=== PATIENT | male | born 1970 | race Caucasian/White ===

== ENCOUNTER → 2016-08-10 | Outpatient (CLI) | payer OTHER ==
[~2016-08-10] VITALS: Ht 181.6 cm; Wt 148.0 kg
[2016-08-10 13:56] VITALS: BP 149/96; PULSE 85; Ht 181.6 cm; Wt 148.0 kg
== END | disposition home or self-care (01) ==
LOC: C.NEUR 13:00
PROVIDERS: ATTEND Internal Medicine Pulmonary Disease
DX: G47.33 Obstructive sleep apnea (adult) (pediatric) (principal)

== ENCOUNTER → 2016-09-03 | Outpatient (CLI) | payer OTHER | END | disposition home or self-care (01) | LOC: C.PATHSPEC 14:26 | PROVIDERS: ATTEND Dermatology | DX: L91.8 Other hypertrophic disorders of the skin (principal) ==

== ENCOUNTER → 2016-11-07 | Outpatient (CLI) | payer OTHER ==
[2016-11-07 11:07] LABS: ALT/SGPT 50 U/L (12-78); AST/SGOT 17 U/L (15-37); BLOOD UREA NITROGEN 24 mg/dl (7-18); BUN/CREATININE RATIO 21.5 (10-20); CALCIUM 8.9 mg/dl (8.5-10.1); CARBON DIOXIDE 32 mmol/L (21-32); CHLORIDE 105 mmol/L (98-107); GLUCOSE 107 mg/dl (70-99); POTASSIUM 4.7 mmol/L (3.5-5.1); SODIUM 141 mmol/L (136-145)
[2016-11-07 11:10] LABS: ALB/GLOB RATIO 0.9 (0.9-2); ALKALINE PHOSPHATASE 82 U/L (45-117)
[2016-11-07 11:12] LABS: ESTIMATED AVERAGE GLUCOSE 128 mg/dl; HA1C FLAG Normal (Normal)
== END | disposition home or self-care (01) ==
LOC: C.LAB 09:37
PROVIDERS: ATTEND Internal Medicine
DX: Z00.00 Encounter for general adult medical examination without abnormal findings (principal); I10 Essential (primary) hypertension; R73.01 Impaired fasting glucose

== ENCOUNTER → 2017-03-06 | Outpatient (CLI) | payer OTHER ==
[2017-03-06 10:43] LABS: ESTIMATED AVERAGE GLUCOSE 128 mg/dl; HA1C FLAG Normal (Normal)
== END | disposition home or self-care (01) ==
LOC: C.LAB 08:58
PROVIDERS: ATTEND Internal Medicine
DX: R73.01 Impaired fasting glucose (principal)

== ENCOUNTER → 2017-09-17 | Outpatient (CLI) | payer OTHER ==
--- NOTE | 2017-09-18 06:16 | PAP/PSG TECHNICIAN REPORT ---
[facility] Panel Machine Setter Polysomnogram Report Study name: None Report date: 09/18/2017 Study date: 09/17/2017 Referring Physician: Vicki Spence PA-C, PA-C Name: SANIYA ANTONY Interpreting Physician: Edil Barboza D.O. Date of : 1970 Panel Machine Setter: Wolf Lester RPSGT. Sex: Male Age: 46 StudyType: PSG PAP Weight: 312 lbs 20.5 inches Height: 46 years, Height 5' 10" Neck Circum: BMI: 44.76 Medications: ASPIRIN 81 MG, HYDRCHLOROTHIAZIDE 12.5 MG, LOSARTAN POTASSIUM 100 MG, METFORMIN HCL 500 MG, VENTOLIN HFA 108 90 BASE Patient History PATIENT HAS HISTORY OF HYPERTENSION, MORBID OBESITY, AND VENU. HE HAS BEEN WEARING CPAP SINCE 2009. HE CURRENTLY WEARS 13 CWP. HE IS HERE TODAY FOR AN UPDATE ON HIS PRESSURE. RM 6 Parameters Monitored NPSG: E1-M2, E2-M1, Fp1-M2, Fp2-M1, F3-M2, F4-M2, F4-M1, C3-M2, C4-M2, C4-M1, O1-M2, O2-M2, O2-M1, T3-M2, T4-M1, P3-M2, P4-M1, CHIN1, CHIN2, HR, EKG, Legs, PFLOW, SNOR, FLOW, CFLOW, Tidal Volume, THOR, ABDO, SpO2, PLTH, CPRESS, ETCO2 Wave, ETCO2, pH Sleep Architecture Sleep Stages Time at Lights Off 9:48:15 PM STAGES Time (min.) TST (%) Time at Lights On 5:52:15 AM Wake 72.5 -- Total Recording Time (TRT) 484.50 min. N1 27.5 7 Total Sleep Period (TSP) 477.5 min. N2 250.5 61 Total Sleep Time (TST) 411.5min. N3 52.0 13 Awake Time 72.5 min. REM 81.5 20 Wake after Sleep Onset 66.0 min. Sleep Efficiency (SE) 85 % Sleep Onset Latency (CARLOS) 6.5 min. Number of Stage 1 Shifts None Awakenings 25 Stage Changes 89 Number of REM periods 10 REM 81.5 20 REM Latency 53.5 min. NREM 330.0 80 Body Position Analysis Supine Right Left Side Prone Vertical Total Sleep Time (min.) 423.6 9.0 45.3 54.32 0.0 0.0 Total Sleep Time (%) 87% 2% 11% 13 0% N/A% Total Sleep Time REM (min.) 77.0 0.0 4.5 None 0.0 0.0 Total Sleep Time NREM (min.) 280.2 9.0 40.8 None 0.0 0.0 Intermittent Wake (min.) 66.4 5.1 1.0 None 0.0 0.0 Total Sleep Period (%) 87% None None None None None Arousals Myoclonus (PLM) * Events Count Index Events Count Index Spontaneous 20 3 Events Awake (PLMW) 55 45.5 Respiratory 0 0.0 Events Asleep w/ Arousal (PLMA) 5 0.7 PLM 5 1 Events Asleep w/o Arousal (PLMS) 279 40.7 Snoring 1 0 Total Asleep 284 41.4 Total 26 4 Total 339 42 Respiratory Analysis * CA OA MA CH H RERA Total Count 0 0 0 0 6 0 6 Index 0.0 0.0 0.0 0 0.9 0 0.9 Mean Duration 0.0 0.0 0.0 0.00 17.0 0.0 17.0 Longest Duration 0.0 0.0 0.0 0.00 0.0 0.0 18.6 Respiratory Event Summary Total Supine ~Supine Right Left Prone REM NREM Apneas Count 0 0 0 0 0 N/A 0 0 Index 0.0 0 0 0.0 0.0 N/A 0 0 Hypopneas (4% Desat) Count 6 4 2 0 2 N/A 6 0 Index 0.9 0.7 2 0.0 2.6 N/A 4.4 0.0 Apneas & All Hypopneas Count 6 4 2 0 2 N/A 6 0 Index 0.9 1 2 0 3 N/A 4.4 0.0 Respiratory Events (Assurance Associate+All Hyp+RERA) Count 6 4 2 0 2 N/A 6 0 Index 0.9 1 2 0.0 2.6 N/A 4.4 0.0 Respiratory Related Arousal Count 0 4 0 0 0 N/A 0 0 Index 0.0 0 0 0 0 N/A 0 0 Snoring Analysis Supine Right Left Prone REM NREM Total Snore duration 0.4 min Snores count 7 2 3 N/A 0 12 12 Snore mean duration 2.0 Sec Snores index 1 13 4 N/A 0.0 2.2 1.7 TST with snoring (%) 0.1% Desaturation Event Summary: Minimum %SpO2 Event Count Mean/Min/Max Duration(sec.) Desaturation Index % Time In Bed > 90 7 42.7 / 30.3 / 53.5 0.9 100.0 86 - 90 0 N/A 0.0 0.0 81 - 85 0 N/A 0.0 0.0 76 - 80 0 N/A 0.0 0.0 71 - 75 0 N/A 0.0 0.0 66 - 70 0 N/A 0.0 0.0 61 - 65 0 N/A 0.0 0.0 56 - 60 0 N/A 0.0 0.0 51 - 55 0 N/A 0.0 0.0 < 50 0 N/A 0.0 0.0 Total REM NREM Awake <50% 0.0 min. 0.0 min. 0.0 min. 0.0 min. 51 - 60% 0.0 min. 0.0 min. 0.0 min. 0.0 min. 61 - 70% 0.0 min. 0.0 min. 0.0 min. 0.0 min. 71 - 80% 0.0 min. 0.0 min. 0.0 min. 0.0 min. 81 - 90% 0.2 min. 0.1 min. 0.0 min. 0.1 min. 91 - 100% 483.4 min. 81.4 min. 330.0 min. 72.0 min. Average 94 94 94 95 Minimum SpO2 90 90 91 90 Desaturation Event Index 0.9 4.4 0.0 0.8 # Desat. Events below 89% N/A N/A N/A N/A Time(%) with Saturation below 89% 0.0 0.0 0.0 0.0 Time(min.) with Saturation below 89% 0.0 0.0 0.0 0.0 Time (mins) REM (mins) NREM (mins) % of TST SpO2 Below 90% 1 1 NN/A 0.0 SpO2 Below 88% 0 0 0 0 Heart Rate Analysis Min (bpm) Max (bpm) Average (bpm) Awake 62 108 81 NREM 60 112 75 REM 60 99 76 Overall 60 112 75 Supplemental O2 Values Minimum O2 level: None Value Start Time End Time Panel Machine Setter Comments Mr. Antony slept in the right, left and supine positions. No cardiac arrhythmia noted. Leg movements noted. No bruxism noted. CPAP was initiated at +10 CMH2O and up-titrated to an optimal level of +12 CMH2O, which nearly eliminated all respiratory events and snoring. The patient brought in his own mask that was used during titration Mr. Antony awoke to use the restroom 0 times during the night. Mr. Antony stated I did not sleep as well as I do when I am in my own bed. The final report will be interpreted and signed by a sleep physician. The completed physician report will then be placed in the patient medical record. Therapy Event: Therapy (cm H20) 10 11 12 Total Time at Pressure (min.) 324.7 87.1 72.2 TST at Pressure (min.) 281.2 69.1 61.2 # Periods 1 1 1 Sleep Onset (min.) 6.5 0.0 0.0 REM Onset (min.) 60.0 0.0 13.7 Sleep Efficiency % 86 79 84 Wakefulness (%) 13.4 20.7 15.2 Wakefulness (min.) 43.5 18.0 11.0 NREM 1 (%) 4.8 6.1 9.3 NREM 1 (min.) 15.5 5.3 6.7 NREM 2 (%) 54.5 46.5 45.7 NREM 2 (min.) 177.0 40.5 33.0 NREM 3 (%) 15.2 2.9 0.0 NREM 3 (min.) 49.5 2.5 0.0 REM (%) 12.1 23.9 29.8 REM (min.) 39.2 20.8 21.5 # Arousals 22 2 2 Arousal Index 4.7 1.7 2.0 # Snore 6 4 2 Snore Index 1.3 3.5 2.0 AHI 0.4 3.5 0.0 AHI Supine 0.4 5.0 0.0 AHI Non-Supine 0.0 2.6 N/A NREM AHI 0.0 0.0 0.0 REM AHI 3.1 11.5 0.0 RDI 0.4 3.5 0.0 # Obstructive 0 0 0 # Central Ap 0 0 0 # Mixed 0 0 0 # Hypopneas 2 4 0 RERAS 0 0 0 Total Respiratory Events 2 4 0 Time Below SpO2 89.00% (min.) 0.0 0.0 0.0 Mean NREM SpO2 (%) 94 94 95 Mean REM SpO2 (%) 94 94 95 Mean Sleep SpO2 (%) 94 94 95 Min NREM SpO2 (%) 91 92 93 Min REM SpO2 (%) 91 90 91 Position Supine (min.) 272.2 23.8 61.2 Position Non-supine (min.) 9.0 45.3 0.0 LM Index Sleep 60.4 0.9 0.0 LM Index NREM 69.9 1.2 0.0 LM Index REM 1.5 0.0 0.0 Mean Heart Rate (bpm) 77 70 70 Min Heart Rate (bpm) 61 60 61
--- NOTE | 2017-09-22 07:52 | Sleep Study ---
Sleep Study Report Date of Service: 09/17/2017 Sleep Study Report CLINICAL DATA: The patient is a 46-year-old male with a history of sleep apnea. He has been wearing nasal CPAP since 2009. His current pressure is 13 centimeters. He has had some daytime tiredness. He is referred for a CPAP retitration. SLEEP ARCHITECTURE: The sleep period time was 477.5 minutes. The total sleep time was 411.5 minutes. The sleep efficiency was mildly reduced to 85 percent. The sleep latency was normal at 6.5 minutes. Wake after sleep onset was 66 minutes. The REM latency was 53.5 minutes. Sleep consisted of stage N1 7 percent, stage N2 61 percent, stage N3 13 percent , stage REM 20 percent. AROUSAL DATA: The patient had a total of 26 arousals including 20 spontaneous arousals, 5 PLM arousals, and 1 snoring arousal. The arousal index was 4. PLM DATA: There was a total of 284 periodic limb movements of sleep for a PLM index of 41.4. There were 5 arousals associated with limb movements for a PLM arousal index of 0.7. EKG: The minimum heart rate was 60 beats per minute. The average heart rate was 75 beats per minute. No a arrhythmias were noted. RESPIRATORY DATA: The patient had a total of 6 respiratory events, all hypopneas. Hypopneas were scored according to the 4 percent desaturation rule. The mean duration of the hypopneas was 17 seconds. The apnea-hypopnea index was only 0.9. At the final CPAP pressure of 12 centimeters the apnea-hypopnea index was 0. OXIMETRY DATA: The average saturation for the night was 94 percent. The minimum saturation was 90 percent. ROD PULLER AND COILER COMMENTS: The patient slept on the right, left, and supine positions. No cardiac arrhythmia noted. Leg movements noted. No bruxism noted. CPAP was initiated at 10 centimeters and up titrated to an optimal level of 12 centimeters which nearly eliminated all respiratory events and snoring. The patient brought in his own mask that was used during titration. He did not awaken to use the restroom during the night. IMPRESSIONS: 1. Obstructive sleep apnea-resolved with nasal CPAP at 12 centimeters 2. Periodic limb movement disorder COMMENTS: The patient had a mild decrease in sleep efficiency. His sleep architecture was overall acceptable. He did spend most of the night in the supine position. Frequent periodic limb movements were noted but without significant arousals. It is unknown if he has any symptoms suggesting restless legs. Clinical correlation is advised in that regard. His prior CPAP setting had been 13 centimeters and it appears this could be decreased down to 12 centimeters. RECOMMENDATIONS: 1. It is advised that the CPAP pressure be adjusted to 12 centimeters. 2. Weight loss is advised in light of the BMI of 44.76. 3. If possible the patient should avoid sleeping in the supine position where there is typically more respiratory events. 4. The patient should be questioned about any concern over leg movement disorder. Measurement of serum ferritin would be advised. Copies To 1: Madhuri Morales M.D.; Edil Barboza DO; Vicki Spence PA-C; Erin Negron M.D.
== END | disposition home or self-care (01) ==
LOC: C.NEUR 20:00
PROVIDERS: ATTEND Physician Assistant
DX: G47.33 Obstructive sleep apnea (adult) (pediatric) (principal); Z88.0 Allergy status to penicillin

== ENCOUNTER → 2017-09-23 | Outpatient (CLI) | payer OTHER ==
[~2017-09-23] VITALS: Ht 180.3 cm; Wt 141.2 kg
[2017-09-23 16:34] VITALS: BP 143/90; PULSE 86; Ht 180.3 cm; Wt 141.2 kg
== END | disposition home or self-care (01) ==
LOC: C.NEUR 14:40
PROVIDERS: ATTEND Physician Assistant
DX: G47.33 Obstructive sleep apnea (adult) (pediatric) (principal)

== ENCOUNTER → 2017-10-13 | Outpatient (CLI) | payer OTHER ==
--- NOTE | 2017-10-13 12:27 | DIAGNOSTIC IMAGING REPORT ---
L HIP UNILATERAL 2 VIEWS CLINICAL HISTORY: 46 years-old Male presenting with M25.552 Left hip [id number]. TECHNIQUE: Frontal and frog-leg lateral views of the left hip were obtained. COMPARISON: None. FINDINGS: Osteophytosis of the left femoral head noted. The left femoral head is congruent within the acetabulum. Joint spaces preserved. There is questionable heterogeneity of medullary bone within the femoral head and neck of this may be due to overlapping soft tissues. No acute fracture or malalignment. Visualized portion of the bony pelvis is normal. IMPRESSION: 1. Mild degenerative changes of the left hip joint. 2. Apparent medullary bone heterogeneity may be due to overlapping soft tissues. If there is clinical concern for osteonecrosis, noncontrast MR of the left hip should be obtained. 3. No acute osseous injury. Electronically signed by: Lance Licona M.D. 10/13/2017 12:25 PM Dictated Date/Time: 10/13/2017 12:24 PM
== END | disposition home or self-care (01) ==
LOC: C.RADBC 12:03
PROVIDERS: ATTEND Internal Medicine
DX: M25.552 Pain in left hip (principal)

== ENCOUNTER → 2017-11-04 | Outpatient (CLI) | payer OTHER ==
--- NOTE | 2017-11-04 20:11 | DIAGNOSTIC IMAGING REPORT ---
L LOWER EXT JOINT WITHOUT CLINICAL HISTORY: 47 years-old Male with LEFT HIP PAIN. Chronic left hip pain cystic changes of the left acetabulum seen on comparison study. Concern for possible avascular necrosis COMPARISON: Pelvis and left hip radiographs 10/29/2017, left hip radiographs 10/13/2017 TECHNIQUE: Multiplanar, multi sequence MRI of the left hip was performed without intravenous contrast. FINDINGS: LABRUM: Linear area of increased T2 signal and irregularity involves the anterosuperior labrum nicely seen on image 9 series 6 and image 14 series 9 suggesting a labral tear. No evidence of Chondrolabral separation or paralabral cyst. BONE MARROW: Mild bone marrow edema of the acetabulum with areas of subcortical cystic change measuring up to 11 mm nicely seen on image 12 series 9. No evidence of avascular necrosis, fracture or transient osteoporosis. BURSAE: There is no evidence for iliopsoas or trochanteric bursitis. Minimal enthesitis at the gluteal insertion sites about the greater trochanters bilaterally. Minimal iliopsoas bursitis noted on the right (image 13 series 8). There is prominent vascularity noted within the region of the right femoral neck. HIP JOINT: Mild to moderate joint space narrowing with marginal spurring and chondral thinning. There is no evidence for femoral-acetabular or ischiofemoral impingement syndrome. There is no joint effusion. No intraarticular loose body is evident. MUSCLES: Muscular signal and morphology is within normal limits. SCIATIC NERVE: The morphology and signal characteristics of the sciatic nerve appear normal. PELVIC STRUCTURES: Indeterminate 4 mm cystic focus is noted left to the prostate apex on image 16 series 5. No adenopathy or ascites. Bladder, rectum and imaged sigmoid colon are unremarkable. Iliac vessels appear patent. IMPRESSION: 1. Mild to moderate joint space narrowing with marginal spurring and chondral thinning of the left femoral acetabular joint with mild bone marrow edema and subcortical cystic change of the acetabulum, likely reactive. No evidence of avascular necrosis. 2. Suggested tear of the anterosuperior labrum. 3. Minimal enthesitis at the bilateral gluteal insertion sites. 4. Mild iliopsoas bursitis on the right. The above report was generated using voice recognition software. It may contain grammatical, syntax or spelling errors. Electronically signed by: Edgar Galaviz M.D. 11/04/2017 8:10 PM Dictated Date/Time: 11/04/2017 4:35 PM
== END | disposition home or self-care (01) ==
LOC: C.MRIBC 15:45
PROVIDERS: ATTEND Orthopaedic Surgery
DX: M70.72 Other bursitis of hip, left hip (principal); M76.891 Other specified enthesopathies of right lower limb, excluding foot

== ENCOUNTER → 2018-02-19 | Outpatient (CLI) | payer OTHER ==
[2018-02-19 11:55] LABS: ALBUMIN 3.9 gm/dl (3.4-5.0); ALKALINE PHOSPHATASE 81 U/L (45-117); ALT/SGPT 41 U/L (12-78); AST/SGOT 18 U/L (15-37); BLOOD UREA NITROGEN 17 mg/dl (7-18); CALCIUM 9.2 mg/dl (8.5-10.1); CARBON DIOXIDE 29 mmol/L (21-32); CHOLESTEROL 131 mg/dl (0-200); GLUCOSE 97 mg/dl (70-99); LDL CHOLESTEROL CALCULATED 66 mg/dl; POTASSIUM 4.4 mmol/L (3.5-5.1); SODIUM 136 mmol/L (136-145); TOTAL PROTEIN 8.5 gm/dl (6.4-8.2)
== END | disposition home or self-care (01) ==
LOC: C.LAB 10:41
PROVIDERS: ATTEND Internal Medicine
DX: Z00.00 Encounter for general adult medical examination without abnormal findings (principal); R53.83 Other fatigue; E78.5 Hyperlipidemia, unspecified; I10 Essential (primary) hypertension; R73.01 Impaired fasting glucose

== ENCOUNTER 2020-03-22 07:00 | Observation (INO) ==
--- NOTE | 2020-02-19 15:46 | PAT Medication Instructions ---
Medication Instructions Date of Service February 19, 2020 Home Medications Medication Instructions Recorded albuterol sulfate 90 mcg/actuation 2 puffs INH Q6H PRN #18 gm 01/23/20 aerosol inhaler Claudio Maharaj #1 ea 01/29/20 metformin 500 mg tablet 500 mg PO BID #180 tab 02/19/20 aspirin [Aspir-81] 81 mg PO QAM albuterol sulfate 90 mcg/actuation aerosol inhaler 2 puffs INH Q6H PRN acetaminophen [Tylenol Extra Strength] 1,000 mg PO Q6H PRN amlodipine 5 mg PO QAM atorvastatin 20 mg PO QPM celecoxib [Celebrex] 200 mg PO QAM fluticasone propionate [Flonase Allergy Relief] 1 - 2 spray INTRANASAL DAILY PRN losartan 100 mg PO QPM omeprazole 20 mg PO QPM metformin 500 mg tablet 500 mg PO BID ASK your surgeon for instructions celecoxib [Celebrex] 200 mg PO QAM DO NOT take the morning of surgery metformin 500 mg tablet 500 mg PO BID Take morning of surgery With a small sip of water, OTHERWISE NOTHING TO EAT OR DRINK AFTER MIDNIGHT: fluticasone propionate [Flonase Allergy Relief] 1 - 2 spray INTRANASAL DAILY PRN (if needed) aspirin [Aspir-81] 81 mg PO QAM albuterol sulfate 90 mcg/actuation aerosol inhaler 2 puffs INH Q6H PRN (use if needed; please bring with you to hospital day of surgery if possible) acetaminophen [Tylenol Extra Strength] 1,000 mg PO Q6H PRN (okay to take up to 4 hours prior to surgery if needed) amlodipine 5 mg PO QAM Take evening before surgery albuterol sulfate 90 mcg/actuation aerosol inhaler 2 puffs INH Q6H PRN (if needed) acetaminophen [Tylenol Extra Strength] 1,000 mg PO Q6H PRN (if needed) atorvastatin 20 mg PO QPM losartan 100 mg PO QPM omeprazole 20 mg PO QPM metformin 500 mg tablet 500 mg PO BID Other Notes If you have any questions please call us at [phone] or [phone] or [phone] or [phone]
--- NOTE | 2020-02-21 14:20 | Anesthesiology Consultation ---
Date of Service February 21, 2020 Assessment & Plan (1) Encounter for pre-operative examination: Chart Review Chart Review: Acceptable Risk for Surgery (pending preop Covid testing ) and Patient seen in Pre Admission Testing - Check BSG AM DOS Pt claustrophobic Per PAT appt on 02/21/20, patient denies any recent travel. Educated patient to follow up with surgeon's office regarding Covid testing. Educated on importance of self quarantining, social distancing and wearing mask in public both for the patient and household contacts. Teaching & Discussion Pre-Anesthesia Teaching/Discussion Notes: Instructed NPO after midnight before surgery,except medications with 15 cc of water. Medication instructions provided according to the PAT guidelines. History Surgery Operation Date: 03/22/20 07:00 Proposed Procedures p Left Total Hip Arthroplasty - Roderick Jenkins MD Height/Weight Height: 5 ft 10 in Weight: 140.2 kg Allergies Allergy/AdvReac Type Severity Reaction Status Date / Time bee venom protein (honey bee) Allergy Mild Signfiicant Verified 02/21/20 14:32 swelling to site Penicillins Allergy Unknown Rash Verified 02/15/20 11:34 Medications Home Medications Medication Instructions Recorded Confirmed Last Taken aspirin [Aspir-81] 81 mg PO QAM 06/27/18 02/15/20 Unknown albuterol sulfate 90 mcg/actuation 2 puffs INH Q6H PRN #18 gm 01/23/20 02/15/20 Unknown aerosol inhaler Wheeled Walker #1 ea 01/29/20 01/29/20 Unknown acetaminophen [Tylenol Extra 1,000 mg PO Q6H PRN 02/15/20 02/15/20 Unknown Strength] amlodipine 5 mg PO QAM 02/15/20 02/15/20 Unknown atorvastatin 20 mg PO QPM 02/15/20 02/15/20 Unknown celecoxib [Celebrex] 200 mg PO QAM 02/15/20 02/15/20 Unknown fluticasone propionate [Flonase 1 - 2 spray INTRANASAL DAILY PRN 02/15/20 02/15/20 Unknown Allergy Relief] losartan 100 mg PO QPM 02/15/20 02/15/20 Unknown omeprazole 20 mg PO QPM 02/15/20 02/15/20 Unknown metformin 500 mg tablet 500 mg PO BID #180 tab 02/19/20 Unknown Past Medical History Medical History Acid reflux Well controlled and stable Allergic rhinitis Chronic back pain LOWER BACK- FEELS SECONDARY TO COMPENSATION OF LEFT HIP PAIN Hiatal hernia Hyperlipidemia Hypertension Impaired fasting glucose PRE DIABETES Morbid obesity Obstructive sleep apnea CPAP Exercise / Class Metabolic Activity II 4-5 Yardwork/Stairs/Walk up hill (ONE FLIGHT OF STAIRS- NO CHEST PAIN OR SOB ) Past Family History Family History Father Diabetes Cardiac disorder Myocardial infarction Brother Kidney disease Diabetes Past Surgical History Surgical History History of adenoidectomy History of tooth extraction WISDOM TEETH Past Anesthesia History No Hx of Anesthesia Complications and No Family Hx of Anesthesia Complications History of PONV No Hx of PONV and No Hx of Motion Sickness Social History Smoking Status: Former smoker Smoking cigarettes per day: 30 Do You Dip or Chew Tobacco: No Smoking End Date: 1999 Hx Alcohol Use: Yes Alcohol type: hard liquor alcohol intake frequency: other (RARE USE ) Hx Substance Use: No Review of Systems Chronic wheezing secondary to allergies- stable Patient denies chest pain, shortness of breath, dyspnea on exertion, cough, palpitations. No hx of seizures, stroke, MD. No hx of blood clots or blood transfusions Physical Exam Vital Signs VITALS BP 150/88 P 90 TEMP 98.2 SP02 100% RESP 16 Constitutional + obese; no acute distress ENMT Mouth: no TMJ clicking Thyromental Distance: > or= 3.5 Finger Breadths (3.5) Mallampati Class: III No missing teeth Neck + short neck, + thick neck and + limited neck extension (moderate to severe ) Respiratory normal respiratory effort; no respiratory distress Auscultation: lungs clear to auscultation bilaterally; no wheezes Cardiovascular Rate/Rhythm: regular rate and regular rhythm Heart Sounds: no murmur Vessels: no carotid bruit Musculoskeletal Spine: no pain with cervical ROM Neurologic moves all extremities Psychiatric Orientation: alert Testing Laboratory Results 02/21/20 14:55 02/21/20 14:55 PT 10.6 Seconds (9.0-12.0) 02/21/20 14:55 INR 1.0 (0.9-1.1) 02/21/20 14:55 APTT 27.1 Seconds (21.0-31.0) 02/21/20 14:55 Hemoglobin A1c 6.1 % (4.5-5.6) H 02/21/20 14:55 Blood Type A Positive 02/21/20 14:55 Antibody Screen NEGATIVE 02/21/20 14:55 Electrocardiogram Date: 02/21/20 Findings: + NSR @ (85) RBBB. compared to EKG from Jun 27, 2018, RBBB is now present per cardio Chest X-Ray Date: 02/21/20 Findings: + NAD
--- NOTE | 2020-02-21 15:30 | XRay Report ---
XR chest Pre-admission PA/Lat CLINICAL HISTORY: pat preoperative COMPARISON STUDY: 06/27/2018 FINDINGS: The bones soft tissues and hemidiaphragms are normal. The cardiomediastinal silhouette is n ormal. The lungs are clear. The pulmonary vasculature is normal. IMPRESSION: Negative chest. ACT 112: Negative or not required by law. The above report was generated using voice recognition software. It may contain grammatical, syntax or spelling errors. Electronically signed by: Ar Guajardo M.D. 02/21/2020 3:28 PM
[2020-02-21 15:48] LABS: Basophils # (auto) 0.02 K/uL (0-0.2); Basophils % (auto) 0.2 %; Eosinophils # (auto) 0.19 K/uL (0-0.5); Eosinophils % (auto) 2.1 %; Hematocrit (blood only) 43.4 % (42-52); Hemoglobin 14.5 g/dL (14.0-18.0); Immature Granulocytes # (auto) 0.01 K/uL (0.00-0.02); Immature Granulocytes % (auto) 0.1 %; Lymphocytes # (auto) 2.02 K/uL (1.2-3.4); Lymphocytes % (auto) 22.7 %; Mean Corpuscular Hemoglobin 28.8 pg (25-34); Mean Corpuscular Hgb Conc 33.4 g/dL (32-36); Mean Corpuscular Volume 86.3 fL (80-100); Mean Platelet Volume 10.6 fL (7.4-10.4); Monocytes # (auto) 0.45 K/uL (0.11-0.59); Monocytes % (auto) 5.1 %; Neutrophils % (auto) 69.8 %; Platelet Count 347 K/uL (130-400); RDW Coefficient of Variation 13.7 % (11.5-14.5); RDW Standard Deviation 43.1 fL (36.4-46.3); Red Blood Count 5.03 M/uL (4.7-6.1); White Blood Count 8.89 K/uL (4.8-10.8)
[2020-02-21 16:02] LABS: Partial Thromboplastin Time 27.1 Seconds (21.0-31.0); Prothrombin Time 10.6 Seconds (9.0-12.0)
[2020-02-21 16:07] LABS: BUN Creatinine Ratio 17.7 (10-20); Calcium 9.1 mg/dl (8.5-10.1); Creatinine Clr Calc Pharmacy 130.2 ml/min; Est GFR (African American) 105.2; Est GFR (Non-African American) 90.8; Potassium 3.9 mmol/L (3.5-5.1)
--- NOTE | 2020-02-21 17:16 | Electrocardiogram Report ---
Test Reason : Blood Pressure : / mmHG Vent. Rate : 085 BPM Atrial Rate : 085 BPM P-R Int : 156 ms QRS Dur : 136 ms QT Int : 396 ms P-R-T Axes : 060 058 028 degrees QTc Int : 471 ms Normal sinus rhythm Right bundle branch block Abnormal ECG When compared with ECG of 27-JUN-2018 18:29, Right bundle branch block is now Present Confirmed by Jin Cannon ([id number]) on 02/21/2020 5:16:01 PM Referred By: Roderick Jenkins Confirmed By:Mitchel Cannon
[2020-02-22 05:52] LABS: Estimated Average Glucose 128 mg/dl; Hemoglobin A1C 6.1 % (4.5-5.6)
--- NOTE | 2020-03-16 19:22 | History and Physical Report ---
DATE OF ADMISSION: 03/22/2020 CHIEF COMPLAINT: Left hip and groin pain. HISTORY OF PRESENT ILLNESS: The patient is a 49-year-old gentleman referred by my partner, Dr. Silver for surgical treatment of his left hip. He has got 2-3 year history of increasing left hip pain and discomfort that has gotten worse over time. He has been treated with anti-inflammatories with minimal relief. He has developed a limited walking tolerance. He has difficulty putting his shoes and socks on due to stiffness in his hip. It is really affecting his quality of life. He did have an intra-articular hip joint injection, which helped him significantly for about 2 days and that is it. It did take away all his hip pain. He has had several episodes where he has tried to lose weight but unsuccessful due to his limited activity level. He would like to have his hip fixed. PAST MEDICAL HISTORY: 1. Hypertension. 2. Elevated cholesterol. 3. Asthma. 4. Sleep apnea. 5. Obesity with BMI of 44. 6. Gastroesophageal reflux disease. 7. Hiatal hernia. PAST SURGICAL HISTORY: Include adenoid removal. ALLERGIES: PENICILLIN, WHICH CAUSES A RASH. No breathing problems. CURRENT MEDICINES: Include: 1. Ventolin inhaler. 2. Amlodipine 5 mg a day. 3. Aspirin 81 mg a day. 4. Atorvastatin 20 mg. 5. Celebrex 200 mg. 6. Losartan 100 mg. 7. Metformin 500 mg a day. 8. Omeprazole 20 mg a day. SOCIAL HISTORY: A 49-year-old male. He is . Does not smoke. FAMILY HISTORY: Noncontributory. REVIEW OF SYSTEMS: Significant for diabetes. Denies any current chest pain or shortness of breath. No history of DVT or PE. No known bleeding problems. No radicular symptoms. No fevers, no weight loss. PHYSICAL EXAMINATION: GENERAL: Shows a fairly large middle-aged male. Looks to be in reasonably good health. HEENT: Benign. NECK: Supple, no lymphadenopathy. LUNGS: Clear to auscultation. HEART: Regular rate and rhythm. ABDOMEN: Soft, nontender, nondistended. EXTREMITIES: Grossly neurovascularly intact except as follows. Examination of the hip reveals the patient walks with a bit of a limp. Leg lengths appear equal. He has got quite a bit of stiffness with his hip and internal rotation to -5 degrees. Negative straight leg raise. No knee effusion. He is neurologically intact. X-RAYS: X-rays of the left hip were reviewed. Shows some moderately advanced hip arthritis. He has got fairly large osteophyte. He has got some cystic changes in his acetabulum. He does have joint space remaining. Fairly mild lumbar spondylosis. ASSESSMENT: A 49-year-old gentleman with a moderately advanced hip degenerative joint disease with fairly significant symptoms unresponsive to conservative care. It is really affecting his quality of life and it seems like the pain is really coming from his hip. Temporary response to intraarticular hip joint injection. PLAN: We talked about treatment options. He is really debilitated by this and would like to have his hip fixed. His disease is in terrible in x-ray, but certainly seems to be coming from his hip. After extensive discussion, we are going to proceed with left total hip replacement. The risks and benefits of this procedure were explained to the patient including but not limited to DVT, PE, , infection, neurological injury, vascular injury, bleeding problem, pain, limited range of motion, stiffness, failure to relieve symptoms, incomplete relief of symptoms, need for further surgery in future, fracture, leg length inequality, nerve palsy, need for revision surgery. The patient understands and desires to proceed. Informed consent was obtained. We did talk to him about holding his metformin the morning of surgery. He is planning to be discharged home using [facility] home health program.
[2020-03-20 08:02] LABS: SARS CoV2 RNA (COVID-19) NOT DETECTED (NOT DETECTED)
[~2020-03-22 07:00] MED LIST: ACETAMINOPHEN 500 MG TAB PO SCH; CEFAZOLIN 3000MG 72.5 ML IV SCH; FAMOTIDINE 20 MG TAB PO SCH; GABAPENTIN 900 MG DOSE PO SCH; LR 500ML BOLUS, THEN 15ML/HR IV SCH; LR 60ML/HR IV SCH; TRANEXAMIC ACID 1,000 MG **IV Intra-op IV SCH
[2020-03-22] MEDS ORDERED: BUPIVACAINE 0.5 % 5 MG/1 ML PF 10ML VIAL ONE (07:07)
[2020-03-22] MEDS ORDERED: MoRPHine SULFATE PF 1 MG/ML 10 ML AMP/VIAL ONE (07:15)
[2020-03-22] MEDS ORDERED: MIDAZOLAM HCL 1 MG/ML 2ML VIAL ONE (07:15)
[2020-03-22] MEDS ORDERED: fentaNYL citrate 100 MCG/2 ML VIAL ONE ×2 (07:15→09:08)
[2020-03-22] MEDS ORDERED: BACITRACIN INJ 50,000 UNIT VIAL ONE (08:32)
[2020-03-22] MEDS ORDERED: BUPIVACAINE 0.5 % 5 MG/1 ML MPF 30ML VIAL ONE (08:32)
[2020-03-22] MEDS ORDERED: EPINEPHrine INJ 1 MG/ML AMP ONE (08:32)
--- NOTE | 2020-03-22 08:34 | History & Physical Bridge Note ---
Date of Service March 22, 2020 History & Physical Bridge Note I have examined the patient, reviewed the History & Physical and in the interval since the performance of the History & Physical I have noted the following changes of clinical significance: no changes noted
[2020-03-22] MEDS ORDERED: ePHEDrine sulfate 50 MG/ML AMP IV PRN (09:14)
[2020-03-22] MEDS ORDERED: HYDROmorphone INJ 0.5 MG/0.5 ML SYR IV PRN ×2 (09:14→12:32)
[2020-03-22] MEDS ORDERED: LABETALOL HCL IV 5 MG/ML 20ML IV PRN (09:14)
[2020-03-22] MEDS ORDERED: FLUMAZENIL 0.1 MG/1 ML 10 ML VIAL IV PRN (09:14)
[2020-03-22] MEDS ORDERED: ONDANSETRON INJ 2 MG/ML 2 ML VIAL IV PRN ×2 (09:14→12:32)
[2020-03-22] MEDS ORDERED: ATROPINE SULFATE 0.1 MG/ML 10ML SYR IV PRN (09:14)
[2020-03-22] MEDS ORDERED: PROMETHAZINE HCL 12.5 MG in SODIUM CHLORIDE 0.9% 50 ML IV PRN (09:14)
[2020-03-22] MEDS ORDERED: NALOXONE HCL 0.4 MG/1 ML VIAL/CARP IV PRN ×2 (09:14→12:32)
[2020-03-22] MEDS ORDERED: SUCCINYLCHOLINE CHLORIDE 20 MG/ML 10 ML VIAL IV ONE (09:39)
[2020-03-22] MEDS ORDERED: DEXAMETHASONE SOD INJ 4 MG/ML VIAL ONE (09:39)
[2020-03-22] MEDS ORDERED: ONDANSETRON INJ 2 MG/ML 2 ML VIAL ONE (09:39)
[2020-03-22] MEDS ORDERED: HYDROmorphone INJ 2 MG/ML SYR/VIAL ONE (09:39)
[2020-03-22] MEDS ORDERED: PROPOFOL IV EMULSION 10 MG/ML 20 ML VIAL IV ONE (09:39)
[2020-03-22] MEDS ORDERED: GLYCOPYRROLATE 0.2 MG/ML VIAL ONE (09:45)
--- NOTE | 2020-03-22 11:04 | Post Operative Brief Note ---
PG Immediate Post Op with CF Date of Surgery March 22, 2020 Pre & Post Diagnosis Operation Date: 03/22/20 08:50 Pre-Op Diagnosis: Left Hip Advanced Degenerative Joint Disease Post-Op Diagnosis: Left Hip Advanced Degenerative Joint Disease I identified the patient and participated in the time-out.: Yes Procedure Operation Date: 03/22/20 08:50 Actual Procedures p Left Total Hip Arthroplasty--Uncemented(Left) - Roderick Jenkins MD Surgeon Roderick Jenkins MD Telemetry Monitor Corine, [facility] Estimated Blood Loss 300 Findings Consistent with Post-Op Diagnosis Fluids 1500 cc Specimens Specimen Description: A. Left Femoral Head Anesthesia Type General Complications none Disposition Accompanied Patient To Recovery: Yes Disposition: Recovery Room
[2020-03-22] MEDS: fentaNYL citrate 100 MCG/2 ML VIAL IV PRN ×3 (11:11→11:37)
--- NOTE | 2020-03-22 11:17 | Operative Report ---
Post Operative Report Pre & Post Diagnosis Operation Date: 03/22/20 08:50 Pre-Op Diagnosis: Left Hip Advanced Degenerative Joint Disease Post-Op Diagnosis: Left Hip Advanced Degenerative Joint Disease I identified the patient and participated in the time-out.: Yes Procedure Operation Date: 03/22/20 08:50 Actual Procedures p Left Total Hip Arthroplasty--Uncemented(Left) - Roderick Jenkins MD Surgeon Roderick Jenkins MD Shale Planer Operator Corine, PAC Estimated Blood Loss 300 Findings Consistent with Post-Op Diagnosis Operative findings revealed advanced left hip DJD with complete loss of the superior articular cartilage of the femoral head. The acetabulum was fairly well preserved with cartilage. He had a small to moderate sized anterior acetabular osteophyte. Pretty significant joint effusion. Fluids 1500 cc. Specimens Left femoral head sent for pathology. Drains None. Complications none Disposition Accompanied Patient To Recovery: Yes Disposition: Recovery Room Indications Patient is a 49-year-old fairly large gentleman with a BMI of 44.5 who is had a several year history of increasing left hip pain discomfort treated by my partner Dr. Silver. It failed conservative measures. He did have an intra- articular hip joint injection which took all his pain away for couple days and that was that unfortunately. X-ray showed some moderate hip arthritis. He failed conservative management elected proceed with total hip arthroplasty. Description of Procedure Operative implants consist of: 1. Biomet G7 size 50 mm acetabular shell. 2. Biomet 6.5 cancellus acetabular screws 1 and 30 mm length and 135 mm length. 3. Monhegan hole limiter. 4. Highly cross-linked polyethylene liner with a 50 mm outer diameter and 32 mm inner diameter. 5. Amy Corail size 11 KLA femoral stem. 6. +1/32 mm ceramic articular ball. Patient was taken to the operating identified and placed on the operating table supine position protectors were properly padded. IV antibiotics tried by anesthesia team. A spinal anesthetic was attempted in the holding area but unsuccessful. Therefore a general anesthetic was implemented. The patient was then placed in the right lateral decubitus position. A roll was placed per distal brachial position was used for position. The left hip and leg were then prepped and draped in usual sterile fashion. A posterior lateral approach to the left hip was then performed through a curvilinear incision centered over the greater trochanter. Sharp dissection Through subcutaneous tissue down of the IT band gluteal fascia but the IT band gluteal fascia were then incised longitudinally in line with skin incision. The underlying greater bursa was excised. He did have a very thick soft tissue envelope. The piriformis and external rotators along with the posterior capsule were then released from the posterior aspect hip joint as a single layer. The hip was internally rotated and dislocated. A femoral neck osteotomy cut was made with a final cut 10 mm above the lesser trochanter. Femoral head was removed and sent for pathology. The femur was retracted anteriorly. Attention drawn the acetabulum. The acetabular labrum was excised. Pulmonary fat was excised. Sequential reaming the acetabulum performed again with a size 43 and progressing up to a 49. A Biomet G7 size 50 mm acetabular shell was then placed in about 40 degrees lateral opening and 20 degrees of anteversion. We worked extremely hard to a soft tissue envelope to get this appropriately positioned. It was then fixed with two 6.5 cancellus acetabular screws. An anterior osteophyte was removed. A trial liner was placed. Attention drawn the femur. The proximal femur was entered with a cookie-cutter followed by canal finder. Broached beginning size 8 and progressing up to 11. Got excellent fit and 11. We then used the calcar reamer to smooth off the calcar. Then trialed the hip. The +5 articular ball just seemed to be too tight soft tissue oden. We therefore used a +1/32 mm articular ball. Hip was fully stable. Leg lengths appeared appropriate. This leg seemed a little longer clinically even preoperatively and I felt we kept in about the same length. We elected to place these implants. All trial implants were removed. An apex eliminator was placed. A highly cross-linked polyethylene liner was impacted in position. A Amy size 11 KLA femoral stem was impacted in position. +1/32 mm ceramic articular ball was placed in the hip was located. Was once again found to be stable. Attention drawn toward closing. The wound was irrigated with pulsatile lavage solution. I did inject locally with 60 cc of absent Marcaine with epinephrine. The posterior capsule external rotators were then repaired as a single layer through drill holes in the posterior trochanter with #2 Tycron suture. The IT band gluteal fascia then closed in 1 PDS suture running fashion the subcutaneous tissue then closed with 2 layers the deep layer #2-0 Vicryl sutures in a buried interrupted fashion followed by 2-0 Dexon suture in a buried interrupted fashion. Skin was then closed with skin hari. Leg was then cleaned dried a sterile dressing composed a Jerrica VAC dressing was then applied. Patient then brought out of general incision transferred to the recovery room in stable condition. Patient tolerated procedure well with no complications. Pranav Pool, my physician assistant store manager sales, was present for the entire procedure. His assistance was required for appropriate patient positioning, prepping and draping, surgical exposure, performed the technical details of the operation, placement of implants, closure of the wound, and placement of a sterile bandage. I attest to the content of the Intraoperative Record and any orders documented therein. Any exceptions are noted below.
--- NOTE | 2020-03-22 11:53 | Anesthesiology Progress Note ---
Date of Service March 22, 2020 Anesthesia Post Procedure Vital Signs Vital Signs: Temp Pulse Resp BP BP Pulse Ox 03/22/20 11:45 83 16 120/93 100 03/22/20 11:35 37.1 C 91 H 16 137/97 100 03/22/20 11:25 85 19 132/78 100 03/22/20 11:15 95 H 11 L 110/84 100 03/22/20 11:05 36.6 C 95 H 19 112/70 98 03/22/20 07:41 36.9 C 101 H 20 131/95 92 Pain Intensity Left Hip: Pain Intensity: 5 Transfer of Care Handoff Completed per policy Notes Mental Status: alert / awake / arousable Patient Amnestic to Procedure: Yes Nausea / Vomiting: adequately controlled Pain: adequately controlled Airway Patency, RR, SpO2: stable & adequate BP & HR: stable & adequate Hydration State: stable & adequate Anesthetic Complications: no major complications apparent
--- NOTE | 2020-03-22 12:06 | XRay Report ---
AP PELVIS, CROSSTABLE LATERAL LEFT HIP History: Left total hip arthroplasty. Degenerative arthritis. Postop. FINDINGS: The patient is status post a left total hip arthroplasty. The hardware is intact. No fractu re or dislocation. Skin hari are in place. IMPRESSION: Left total hip arthroplasty. No evidence for hardware complication. ACT 112: Negative or not required by law. Electronically signed by: Twan Dallas M.D. 03/22/2020 12:05 PM
[2020-03-22] MEDS ORDERED: GLUCAGON FOR INJ 1 MG VIAL SQ PRN ×2 (12:32→13:35)
[2020-03-22] MEDS ORDERED: GLUCOSE 10 TABS/TUBE PO PRN ×2 (12:32→13:35)
[2020-03-22] MEDS ORDERED: METOCLOPRAMIDE HCL INJ 5 MG/ML 2 ML VIAL IV PRN (12:32)
[2020-03-22] MEDS ORDERED: TAMSULOSIN HCL 0.4 MG CAP PO PRN (12:32)
[2020-03-22] MEDS ORDERED: CARBOHYDRATES FOR HYPOGLYCEMIA PO PRN ×2 (12:32→13:35)
[2020-03-22] MEDS ORDERED: DEXTROSE 50% 50 ML SYRINGE IV PRN ×2 (12:32→13:35)
[2020-03-22] MEDS ORDERED: MAGNESIUM HYDROXIDE SUSP 30 ML UDC PO PRN (12:32)
[2020-03-22] MEDS ORDERED: GLUCOSE 40% GEL 15 GM TUBE PO PRN ×2 (12:32→13:35)
[2020-03-22] MEDS ORDERED: TRAMADOL HCL 50 MG TABLET PO PRN (12:32)
[2020-03-22] MEDS ORDERED: bisacodyL 10 MG SUPP PR PRN (12:32)
[2020-03-22] MEDS ORDERED: ALBUTEROL HFA 8 GM INHALER INH PRN (12:32)
[2020-03-22] MEDS ORDERED: ALUMINUM/MAGNESIUM SUSP 30 ML UDC PO PRN (12:32)
[2020-03-22] MEDS: [UNRECOGNIZED DRUG - REMARK] SCH ×3 (12:36→12:38)
[2020-03-22] MEDS ORDERED: PHARMACY GLYCEMIC MGMT CONSULT PRN (12:56)
[2020-03-22] MEDS ORDERED: PHARMACY GLYCEMIC MGMT CONSULT STA (13:35)
--- NOTE | 2020-03-22 14:13 | Pharmacy Report ---
Glycemic Control Consultation - Date of Service March 22, 2020 - Scope Scope: Glycemic Pharmacist consulted for glycemic control and to write orders per [facility] inpatient glycemic control protocol. - Objective Weight: 140.7 kg Accuchecks BSG (last 24hrs): 03/22/20 03/22/20 03/22/20 07:48 11:11 12:42 POC Glucose 104 H 151 H 139 H HbA1c: Hemoglobin A1c 6.1 % (4.5-5.6) H 02/21/20 14:55 - Recent Pertinent Medications Outpatient Anti-diabetic Regimen: * metformin 500 mg bid * A1c = 6.1 % 02/21/20 Risk Factors for Insulin Resistance: * Steroids: dxm 4 iv * Recent Surgery: POD 0 * Diet: t2dm - Assessment & Plan Assessment & Plan: ASSESSMENT: * 49 year old male now s/p L hip arthroplasty. POD 0 - pharmacy consulted for glycemic management postop * Dexamethasone pulled on patient in OR, anticipate steroid induced hyperglycemia therefore plan to utilize basal/bolus insulin for postop control PLAN FOR INPATIENT GLYCEMIC CONTROL: * Holding outpatient oral diabetes medications * Basal insulin * NPH 15-20 units x 1 with dinner depending on BSG value (to cover steroids) * Bolus insulin * NovoLog per scale ACHS or Q6hrs while NPO * Goal Range: Low 110 mg/dL - High 140 mg/dL * Correction Factor: 20 mg/dL/unit * Nutritional / Prandial insulin per carb ratio of 1 unit per 7 grams CHO consumed * Please note that the plan above was derived based on current level of insulin resistance and hospital stress. These recommendations are appropriate for inpatient admission only. Plan of care upon discharge will need to be reassessed to avoid potential outpatient hypo/hyperglycemia. Thank you.
[2020-03-22] MEDS: SODIUM CHLORIDE 0.9% 1000ML 1,000 ML IV SCH ×2 (14:14→20:28)
[2020-03-22] MEDS: KETOROLAC 30 MG/ML VIAL IV SCH ×2 (14:14→19:29)
[2020-03-22] MEDS: Scopolamine CHECK PATCH PLACEMENT SCH (15:10)
[2020-03-22] MEDS: ACETAMINOPHEN 500 MG TAB PO SCH ×2 (16:06→22:23)
[2020-03-22] MEDS: ASCORBIC ACID 500 MG TAB PO SCH (16:07)
[2020-03-22] MEDS: CEFAZOLIN 2000MG 2,000 MG/15 ML SYR IV SCH (16:08)
[2020-03-22] MEDS ORDERED: TRANEXAMIC ACID / 0.7% NACL 1,000 MG/100 ML BAG IV SCH (17:07)
[2020-03-22] MEDS ORDERED: NovoLIN-N (NPH) PER UNIT CHARGE SQ ONE (17:30)
[2020-03-22] MEDS: INSULIN ASPART 100 UNITS/ML 3 ML PEN SC SCH ×2 (17:44→21:48)
[2020-03-22] MEDS ORDERED: NovoLIN-N (NPH) PER UNIT CHARGE SQ SCH (18:00)
[2020-03-22] MEDS ORDERED: SENNA 8.6 MG TAB PO SCH (21:00)
[2020-03-22] MEDS ORDERED: ATORVASTATIN 20 MG TAB PO SCH (21:00)
[2020-03-22] MEDS ORDERED: LOSARTAN POTASSIUM 50 MG TAB PO SCH (21:00)
[2020-03-22] MEDS ORDERED: PANTOprazole 40 MG TAB PO SCH (21:00)
[2020-03-22] MEDS: ASPIRIN 81 MG ECTAB PO SCH (21:42)
[2020-03-22] MEDS: DOCUSATE SODIUM 100 MG CAP PO SCH (21:43)
[2020-03-23] MEDS ORDERED: INSULIN ASPART 100 UNITS/ML 3 ML PEN SC SCH
[2020-03-23] MEDS: Scopolamine CHECK PATCH PLACEMENT SCH ×2 (00:24→09:53)
[2020-03-23] MEDS: KETOROLAC 30 MG/ML VIAL IV SCH ×3 (00:24→12:08)
[2020-03-23] MEDS: CEFAZOLIN 2000MG 2,000 MG/15 ML SYR IV SCH (00:24)
[2020-03-23] MEDS: SODIUM CHLORIDE 0.9% 1000ML 1,000 ML IV SCH (03:54)
[2020-03-23 05:47] LABS: Basophils # (auto) 0.01 K/uL (0-0.2); Basophils % (auto) 0.1 %; Eosinophils # (auto) 0.03 K/uL (0-0.5); Eosinophils % (auto) 0.3 %; Hematocrit (blood only) 33.2 % (42-52); Hemoglobin 10.9 g/dL (14.0-18.0); Immature Granulocytes # (auto) 0.02 K/uL (0.00-0.02); Immature Granulocytes % (auto) 0.2 %; Lymphocytes # (auto) 1.87 K/uL (1.2-3.4); Lymphocytes % (auto) 19.2 %; Mean Corpuscular Hemoglobin 28.3 pg (25-34); Mean Corpuscular Hgb Conc 32.8 g/dL (32-36); Mean Corpuscular Volume 86.2 fL (80-100); Mean Platelet Volume 9.7 fL (7.4-10.4); Monocytes % (auto) 12.3 %; Neutrophils # (auto) 6.61 K/uL (1.4-6.5); Neutrophils % (auto) 67.9 %; Platelet Count 266 K/uL (130-400); RDW Coefficient of Variation 14.1 % (11.5-14.5); RDW Standard Deviation 44.2 fL (36.4-46.3); Red Blood Count 3.85 M/uL (4.7-6.1); White Blood Count 9.74 K/uL (4.8-10.8)
[2020-03-23] MEDS: ACETAMINOPHEN 500 MG TAB PO SCH (05:57)
[2020-03-23 06:19] LABS: BUN Creatinine Ratio 19.9 (10-20); Calcium 7.9 mg/dl (8.5-10.1); Creatinine Clr Calc Pharmacy 110.2 ml/min; Est GFR (African American) 85.8; Est GFR (Non-African American) 74.1; Potassium 3.6 mmol/L (3.5-5.1)
--- NOTE | 2020-03-23 08:43 | Progress Notes ---
DATE: 03/22/2020 SUBJECTIVE: A 49-year-old gentleman postop day 1 from a left hip replacement. He is doing pretty well. Pain has been controlled. He has been getting around, but does struggle a little bit lifting his leg, which is normal. No chest pain or shortness of breath. Not feeling dizzy or lightheaded. OBJECTIVE: VITAL SIGNS: Temperature 36.9. Vital signs stable. GENERAL: Shows a large middle-aged male. He is lying in bed, looks pretty comfortable. LUNGS: Clear to auscultation. HEART: Regular rate and rhythm. ABDOMEN: Soft, nontender, nondistended. EXTREMITIES: Grossly neurovascularly intact except as follows. Examination of the left lower extremity reveals the leg to be well aligned. Dressing is clean, dry and intact. Thigh is soft and supple. He is neurologically intact. LABORATORY DATA: Hemoglobin 10.9. Hematocrit 33.2. Electrolytes are stable. ASSESSMENT: A 49-year-old gentleman postop day 1 from a left hip replacement, doing reasonably well. Pain is reasonably controlled. PLAN: 1. DVT prophylaxis including thigh-high TEDs, SCDs, and aspirin twice a day. 2. PT/OT. Weight bear as tolerated. Left total hip protocol. 3. Pain control, doing okay with current pain regimen. 4. Disposition: We are going to see how he does in therapy today. Very large gentleman, he is going to need some help for a little while. He is going to be set up with some home health. We will see how therapy goes today as far as discharge plans.
[2020-03-23] MEDS ORDERED: AMLODIPINE BESYLATE 5 MG TAB PO SCH (09:00)
[2020-03-23] MEDS ORDERED: MULTIVITAMIN TAB PO SCH (09:00)
[2020-03-23] MEDS: INSULIN ASPART 100 UNITS/ML 3 ML PEN SC SCH ×2 (09:21→12:50)
[2020-03-23] MEDS: ASPIRIN 81 MG ECTAB PO SCH (09:53)
[2020-03-23] MEDS: ASCORBIC ACID 500 MG TAB PO SCH (09:53)
[2020-03-23] MEDS: DOCUSATE SODIUM 100 MG CAP PO SCH (09:53)
--- NOTE | 2020-03-30 21:09 | Discharge Summary ---
Date of Service March 30, 2020 Admission HPI Per Admitting Provider Documented in the H & P Admission Exam (Per Admitting) Constitutional Documented in the H & P Discharge Data Consultations 03/23/20 08:00 Consult Case Management - Discharge Planning Routine Procedures Performed Operation Date: 03/22/20 08:50 Actual Procedures p Left Total Hip Arthroplasty--Uncemented(Left) - Roderick Jenkins MD Hospital Course (1) Status post total hip replacement, left: This patient is a 49 year old male admitted on 03/22/20 and underwent total hip arthroplasty. He tolerated the procedure well and there were no complications. Transferred to the PACU post op and later to the orthopedic floor for further care. He was given ancef for antibiotic prophylaxis. He was also given MARY stockings, SCDs, and aspirin for DVT prophylaxis. Hemoglobin, hematocrit, and vital signs were monitored during his hospital stay and remained stable. Did not require any blood transfusions. There were no complications during his hospital stay. By post op day #1 the patient was tolerating a regular diet, pain was reasonably controlled with oral pain medicine, and he was participating in physical therapy. On post op day #1 the patient was discharged home and set up with home health care. He was given printed discharge instructions including prescriptions for extra strength tylenol, aspirin, and tramadol . Continue physical therapy, weight bearing as tolerated. Total hip precautions. Continue MARY stockings. Follow up approximately 2 weeks post op or sooner if there are problems or concerns. Coding Level of Care Code None Diagnoses Status post total hip replacement, left Z96.642
== END 2020-03-23 13:42 | disposition home health service (06) ==
LOC: ASU 07:00 → 3E 07:00

== ENCOUNTER 2023-12-04 16:43 | Inpatient (IN) ==
--- NOTE | 2023-12-04 17:10 | Emergency Department Note ---
Impression & Plan Elevated troponin ADMIT ED Provider Note HPI: History obtained from patient. The patient is a 53-year-old gentleman who presents the emergency department with a chief complaint of chest pain. Patient states that earlier this afternoon (approximately 1 PM) he awoke from a nap with an acute episode of coughing and felt as if he was gagging on some phlegm. Patient states he also had a slight blood tinge to his sputum that he coughed up. Patient states he had an episode of left-sided chest pain with this episode of coughing that lasted approximately 10 minutes. Patient went to a local urgent care and following EKG and a chest x-ray he was advised to come to the emergency department given his complaint of chest pain that worsened with deep breathing. Patient tells me he has had some substernal chest discomfort that is transient in nature for several years, however the 10-minute long episode of left-sided chest pain is something that was new. On arrival here to the ED the patient is initially hypertensive, he is otherwise hemodynamically stable and saturating well on room air. ROS: - Per HPI Differential Diagnosis: Acute coronary syndrome, myocarditis, pulmonary embolism, aortic dissection, viral upper respiratory infection with cough, acute bronchitis, pneumonia, amongst other potential pathologies. *Outpatient medications and allergy history reviewed. PE: General: Alert HEENT: Normocephalic, trachea midline Eyes: Extraocular eye movement is intact, no scleral erythema Pulmonary: Clear to auscultation bilaterally, no wheezing Cardio: Regular rate and rhythm GI: Abdomen is soft to palpation : No suprapubic tenderness MSK: No evidence of trauma or malformation of the extremities, no edema Skin: No evidence of rash Neuro: Alert, no focal deficits Psychiatric: Cooperative INDEPENDENT INTERPRETATIONS: equipment monitor phototypesetting: (As interpreted by myself): - An order was placed for continuous cardiac monitoring - Patient was noted to be in sinus rhythm with a rate of 95 EKG: (As interpreted by myself): Rate: 104 Rhythm: Sinus rhythm Intervals: QRS 134 ms, QTc 499 ms, otherwise within normal limits ST changes: No ST elevation Time: 1658 Chest x-ray: (As interpreted by myself): No acute process Interventions provided in ED: -Aspirin, IV fluid bolus Medical Decision Making: IV was established and lab work obtained, patient was placed on equipment monitor phototypesetting. Lab work shows a mild leukocytosis at 11.77, hemoglobin is normal, platelet count is normal, D-dimer was obtained and is elevated at 980, CMP does not show any critical findings, initial high-sensitivity troponin level is noted to be elevated at 439.9, patient's EKG does not show any evidence of ST elevation per my interpretation. Chest x-ray does not show any evidence of acute disease. Given the patient's elevated D-dimer, CT angiography of the chest was obtained that does not show any evidence of PE or aortic dissection. Patchy bilateral groundglass opacities inflammatory versus infectious are noted per the interpreting radiologist. Repeat high-sensitivity troponin levels obtained and is essentially unchanged at 440.2. On my reassessment the patient remains resting comfortably in bed, he is hemodynamically stable, discussed the patient's presentation with the on-call ice puller, Dr. Campos, at this time as the patient's troponin has not up trended and the patient is not currently having any chest pain, he recommends against heparin drip. Patient was given aspirin. Viral panel will be obtained over concern for possible myocarditis given the patient's recent cough. Will also order blood cultures. At this time we will hold off on antibiotics without any obvious pneumonia. Patient does not have a fever. [facility] hospitalist service was consulted for admission and the patient was placed for admission in stable condition. Consultants/Discussions held with other healthcare providers: -Cardiology, Dr. Campos -Hospitalist, Dr. Navarrete Disposition discussion held by myself with: -Patient Diagnosis: 1. Transient episode of chest pain, acute 2. Elevated high-sensitivity troponin level, acute 3. Cough, acute Disposition: Admission Ar Koroma DO Emergency Medicine Past Med/Surg History Problem List (Updated 12/04/23 @ 21:13 by Ar Koroma DO) Elevated troponin (Acute) Robles's palsy Epidermal cyst GERD (gastroesophageal reflux disease) (Chronic) Left knee DJD (Chronic) Metabolic syndrome (Chronic) Arthritis of right hip (Chronic) Hiatal hernia (Chronic) Chronic back pain (Chronic) Allergic rhinitis (Chronic) Morbid obesity (Chronic) BMI 44.1 Obstructive sleep apnea (Chronic) CPAP Impaired fasting glucose (Chronic) Hyperlipidemia (Chronic) Hypertension (Chronic) Medical History Robles's palsy Left knee DJD GERD (gastroesophageal reflux disease) Arthritis of right hip Metabolic syndrome Chronic back pain Hiatal hernia Allergic rhinitis Morbid obesity Obstructive sleep apnea Impaired fasting glucose Hyperlipidemia Hypertension Surgical History Status post total hip replacement, left (03/2020) History of tooth extraction History of adenoidectomy Family History Father Diabetes Cardiac disorder Myocardial infarction Hearing loss Hypertension Heart disease Brother Kidney disease Diabetes Hypertension Other No family history of adverse response to anesthesia No family history of bleeding disorder Social History (Updated 11/16/23 @ 09:03 by Blanca Hale LPN) Smoking Status: Former smoker Age Started Using Tobacco: 19; Age Quit Using Tobacco: 29; packs per day: 1.5; Second Hand Exposure: Yes (FATHER SMOKED); Do You Dip or Chew Tobacco: No; Hx Alcohol Use: Yes Alcohol type: hard liquor Alcohol Intake Frequency Comment: 2-3 drinks occasionally on weekends Hx Substance Use: No Preferred Language: Arabic Communication Ability: Effective Visual Impairment: No Limitations Hearing Ability: Normal Client Account Manager Required: No Beliefs That Will Affect Care: None marital status: Current Living Situation: Spouse and Family current occupational status: employed Feels Safe at Home: Yes Childhood Exposure to Second-Hand Smoke: Yes Diet: regular caffeine: Yes Dental Care, Regularly: Yes Seatbelt Use: always Sunscreen Use: Yes Assistive Devices: CPAP and Glasses Allergies Allergies Allergy/AdvReac Type Severity Reaction Status Date / Time bee venom protein (honey bee) Allergy Mild Significant Verified 12/04/23 18:03 swelling to site chlorhexidine Allergy Mild Rash Verified 12/04/23 18:03 Penicillins Allergy Mild Rash Verified 12/04/23 18:03 Home Meds Home Medications Medication Instructions Recorded Confirmed cyanocobalamin (vitamin B-12) 1,000 mcg PO QPM 12/18/21 12/04/23 1,000 mcg capsule losartan 100 mg tablet 100 mg PO DAILY 12/04/23 12/04/23 losartan 100 0 tab PO DAILY 12/04/23 12/04/23 mg-hydrochlorothiazide 12.5 mg tablet Previous Rx's Medication Instructions Recorded celecoxib 200 mg capsule (Celebrex) 200 mg PO DAILY #90 caps 02/09/23 omeprazole 20 mg capsule,delayed 20 mg PO DAILY #90 caps 05/14/23 release semaglutide (weight loss) 2.4 2.4 mg (0.75 mL) subcut Q7D 28 06/03/23 mg/0.75 mL subcutaneous pen days #3 mL injector amlodipine 5 mg tablet 5 mg PO DAILY #90 tabs 09/02/23 atorvastatin 20 mg tablet 20 mg PO DAILY #90 tabs 09/02/23 Results & Data (ED) Vital Signs Vital Signs - 24 hr 12/04/23 16:45 12/04/23 16:51 12/04/23 17:20 Temperature 37.1 C Temperature Source Temporal Artery Scan Pulse Rate 102 H 100 H Pulse Rate [Finger] Respiratory Rate 18 Respiratory Effort / Characteristics Non-Labored Spontaneous Respiratory Depth Normal Blood Pressure 175/129 H Blood Pressure [Right Arm] Blood Pressure Mean 144 Blood Pressure Mean [Right Arm] Blood Pressure Position Sitting Pulse Oximetry 99 99 Oxygen Delivery Method Room Air Room Air Oxygen Flow Rate 0 Sepsis Recent Fever Within 48 Hours No Sepsis New/Unexplained Change in Mental Status N/A Sepsis Action Taken by Nursing No Action Required 12/04/23 18:54 12/04/23 20:54 Temperature Temperature Source Pulse Rate Pulse Rate [Finger] 97 H 99 H Respiratory Rate 22 20 Respiratory Effort / Characteristics Respiratory Depth Blood Pressure Blood Pressure [Right Arm] 172/117 H 184/121 H Blood Pressure Mean Blood Pressure Mean [Right Arm] 135 142 Blood Pressure Position Pulse Oximetry 98 97 Oxygen Delivery Method Room Air Room Air Oxygen Flow Rate Sepsis Recent Fever Within 48 Hours Sepsis New/Unexplained Change in Mental Status Sepsis Action Taken by Nursing Laboratory Data 12/04/23 17:30 12/04/23 19:18 Lab Results 12/04/23 12/04/23 Range/Units 17:30 19:18 WBC 11.77 H (4.8-10.8) K/ul RBC 5.55 (4.70-6.10) M/uL Hgb 15.4 (14.0-18.0) g/dl Hct 47.3 (42.0-52.0) % MCV 85.2 (80.0-100.0) fL MCH 27.7 (25.0-34.0) pg MCHC 32.6 (32.0-36.0) g/dL RDW Std Deviation 41.8 (36.4-46.3) fL RDW Coeff of Butch 13.4 (11.5-14.5) % Plt Count 388 (130-400) K/uL MPV 10.3 (9.4-12.4) fL Immature Gran % (Auto) 0.4 % Neut % (Auto) 73.9 % Lymph % (Auto) 17.5 % Culberson % (Auto) 6.5 % Eos % (Auto) 1.2 % Baso % (Auto) 0.5 % Neut # (Auto) 8.69 H (1.40-6.50) K/uL Lymph # (Auto) 2.06 (1.20-3.40) K/uL [place]on # (Auto) 0.77 H (0.11-0.59) K/uL Eos # (Auto) 0.14 (0.00-0.50) K/uL Baso # (Auto) 0.06 (0.00-0.20) K/uL Immature Gran # (Auto) 0.05 (0.01-0.20) K/uL PT 10.6 (9.0-12.0) Seconds INR 1.0 (0.9-1.1) D-Dimer 980 H* (0-500) ug/L FEU Sodium 139 (136-145) mmol/L Potassium TNP 3.7 Chloride 106 (98-107) mmol/L Carbon Dioxide 22 (21-32) mmol/L Anion Gap 11 (3-11) BUN 20 (6-23) mg/dl Creatinine 1.04 (0.6-1.4) mg/dl Est Cr Clr Drug Dosing 113.1 ml/min Est GFR ( Amer) 95.2 ml/min Est GFR (Non-Af Amer) 82.2 ml/min BUN/Creatinine Ratio 19.2 (10-20) Glucose 123 H (70-99(Fasting)) mg/dl Calcium 9.5 (8.6-10.3) mg/dl Total Bilirubin 0.4 (0.2-1.0) mg/dl AST TNP 15 ALT 24 (7-52) U/L Alkaline Phosphatase 90 (34-104) U/L Troponin I High Sens 439.9 H* 440.2 H* (0-20) pg/ml Total Protein 8.3 (6.0-8.3) gm/dl Albumin 4.6 (3.4-5.0) gm/dl Globulin 3.7 (2.5-4.0) gm/dl Albumin/Globulin Ratio 1.2 (0.9-2) Lipase 65 (11-82) U/L Administered Medications Discontinued Medications Aspirin (Aspirin Chew 324 Mg) 324 mg PO NOW STA Stop: 12/04/23 20:41 Last Admin: 12/04/23 20:52 Dose: 324 mg Documented By: JEWEL Sodium Chloride (Nss) 500 mls @ 999 mls/hr IV .Q31M ONE Stop: 12/04/23 19:15 Last Admin: 12/04/23 19:19 Dose: 999 mls/hr Documented By: SW Ioversol (Optiray 320 125ml) 120 ml IV ONCE ONE Stop: 12/04/23 19:06 Last Admin: 12/04/23 19:06 Dose: 120 ml Documented By: SABRINA Imaging Data Radiologist's Impression: Chest X-Ray 12/04/23 16:55 XR chest 1V portable HISTORY: 53 years-old Male Chest pain, nonspecific COMPARISON: 05/13/2023 TECHNIQUE: AP view of the chest FINDINGS: Lung volumes are normal. Lungs are clear. There is no pneumothorax or pleural effusion. There is moderate cardiomegaly. Mediastinal contours are normal. There is no evidence for pulmonary edema. IMPRESSION: No acute process. ACT 112: Negative or not required by law. The above report was generated using voice recognition software. It may contain grammatical, syntax or spelling errors. Electronically signed by: Steve Galaviz M.D. 12/04/2023 5:37 PM Chest CTA 12/04/23 18:45 CT angio chest PE protocol CT DOSE: 891.75 mGy.cm HISTORY: 53 years-old Male with PE. Acute shortness of breath TECHNIQUE: Multiple CTA images of the chest were obtained after the intravenous administration of 120 ml Optiray. Coronal and sagittal MIPS were obtained from the axial data set and were submitted for review. All measurements were obtained according to NASCET criteria. A dose lowering technique was utilized adhering to the principles of ALARA. COMPARISON: Chest radiograph of same day FINDINGS: CTA: Heart is normal in size. No pericardial effusion. Unremarkable thoracic aorta. No pulmonary emboli. CT CHEST: Unremarkable thyroid. No lymphadenopathy. No pneumothorax, pleural effusion, airspace consolidation or pulmonary edema. Mild patchy groundglass opacities are noted bilaterally, most pronounced throughout the right lung. Mild associated bronchial wall thickening. Central airways are patent. No acute upper abdominal abnormality. Subsequent hypodensities in the liver are too small to characterize, likely cysts. No acute fracture. IMPRESSION: 1. No pulmonary emboli. 2. No pleural effusion or lymphadenopathy. 3. Mild patchy bilateral groundglass densities are likely infectious or inflammatory. ACT 112: Negative or not required by law. The above report was generated using voice recognition software. It may contain grammatical, syntax or spelling errors. Electronically signed by: Steve Galaviz M.D. 12/04/2023 8:06 PM Discharge Plan Visit Data Chief Complaint: Shortness of Breath/Dyspnea Stated Complaint: CHEST PAIN, DOC REF ED Provider: Ar Koroma Discharge Problem: Elevated troponin Forms Stand Alone Forms: My [facility] IMNEXT Prescriptions Prescriptions: No Action omeprazole 20 mg capsule,delayed release(DR/EC) 20 mg PO DAILY Qty: 90 3RF amlodipine 5 mg tablet 5 mg PO DAILY Qty: 90 3RF atorvastatin 20 mg tablet 20 mg PO DAILY Qty: 90 3RF celecoxib [Celebrex] 200 mg capsule 200 mg PO DAILY Qty: 90 3RF semaglutide (weight loss) 2.4 mg/0.75 mL pen injector 2.4 mg subcut Q7D 28 Days Qty: 3 5RF Rx Instructions: Wednesday cyanocobalamin (vitamin B-12) 1,000 mcg capsule 1,000 mcg PO QPM losartan 100 mg tablet 100 mg PO DAILY Rx Instructions: Per pt, this will be discontinued on 12/05/23, will take last dose tonight on 12/04/23 losartan-hydrochlorothiazide 100-12.5 mg tablet 0 tab PO DAILY Rx Instructions: Pt starts this medication on 12/05/23. Original Directions: 1 tab by mouth daily Referrals Referrals: Madhuri Morales MD [Primary Care Provider] -
--- NOTE | 2023-12-04 17:39 | XRay Report ---
XR chest 1V portable HISTORY: 53 years-old Male Chest pain, nonspecific COMPARISON: 05/13/2023 TECHNIQUE: AP view of the chest FINDINGS: Lung volumes are normal. Lungs are clear. There is no pneumothorax or pleural effusion. There is mode rate cardiomegaly. Mediastinal contours are normal. There is no evidence for pulmonary edema. IMPRESSION: No acute process. ACT 112: Negative or not required by law. The above report was generated using voice recognition software. It may contain grammatical, syntax o r spelling errors. Electronically signed by: Steve Galaviz M.D. 12/04/2023 5:37 PM
[2023-12-04 17:45] LABS: Basophils # (auto) 0.06 K/uL (0.00-0.20); Basophils % (auto) 0.5 %; Eosinophils # (auto) 0.14 K/uL (0.00-0.50); Eosinophils % (auto) 1.2 %; Hematocrit (blood only) 47.3 % (42.0-52.0); Hemoglobin 15.4 g/dl (14.0-18.0); Immature Granulocytes # (auto) 0.05 K/uL (0.01-0.20); Immature Granulocytes % (auto) 0.4 %; Lymphocytes # (auto) 2.06 K/uL (1.20-3.40); Lymphocytes % (auto) 17.5 %; Mean Corpuscular Hemoglobin 27.7 pg (25.0-34.0); Mean Corpuscular Hgb Conc 32.6 g/dL (32.0-36.0); Mean Corpuscular Volume 85.2 fL (80.0-100.0); Mean Platelet Volume 10.3 fL (9.4-12.4); Monocytes # (auto) 0.77 K/uL (0.11-0.59); Monocytes % (auto) 6.5 %; Neutrophils # (auto) 8.69 K/uL (1.40-6.50); Neutrophils % (auto) 73.9 %; Platelet Count 388 K/uL (130-400); RDW Coefficient of Variation 13.4 % (11.5-14.5); RDW Standard Deviation 41.8 fL (36.4-46.3); Red Blood Count 5.55 M/uL (4.70-6.10); White Blood Count 11.77 K/ul (4.8-10.8)
[2023-12-04 18:08] LABS: Alanine Aminotransferase 24 U/L (7-52); Albumin Globulin Ratio 1.2 (0.9-2); Albumin Level 4.6 gm/dl (3.4-5.0); Alkaline Phosphatase 90 U/L (34-104); Anion Gap 11 (3-11); BUN Creatinine Ratio 19.2 (10-20); Bilirubin,Total 0.4 mg/dl (0.2-1.0); Blood Urea Nitrogen 20 mg/dl (6-23); Calcium 9.5 mg/dl (8.6-10.3); Carbon Dioxide 22 mmol/L (21-32); Chloride 106 mmol/L (98-107); Creatinine Clr Calc Pharmacy 113.1 ml/min; Est GFR (African American) 95.2 ml/min; Est GFR (Non-African American) 82.2 ml/min; Globulin 3.7 gm/dl (2.5-4.0); Glucose 123 mg/dl (70-99(Fasting)); Lipase 65 U/L (11-82); Sodium 139 mmol/L (136-145); Total Protein 8.3 gm/dl (6.0-8.3)
[2023-12-04 18:13] LABS: Prothrombin Time 10.6 Seconds (9.0-12.0)
[2023-12-04 18:20] LABS: Troponin I High Sensitivity 439.9 pg/ml (0-20)
[2023-12-04 18:45] LABS: D Dimer 980 ug/L FEU (0-500)
[2023-12-04] MEDS: OPTIRAY 320 125ml IV ONE (19:06)
[2023-12-04] MEDS: SODIUM CHLORIDE 0.9% 500 ML IV ONE (19:19)
[2023-12-04 19:57] LABS: Potassium 3.7 mmol/L (3.5-5.1)
[2023-12-04 20:05] LABS: Troponin I High Sensitivity 440.2 pg/ml (0-20)
--- NOTE | 2023-12-04 20:08 | CT Scan Report ---
CT angio chest PE protocol CT DOSE: 891.75 mGy.cm HISTORY: 53 years-old Male with PE. Acute shortness of breath TECHNIQUE: Multiple CTA images of the chest were obtained after the intravenous administration of 120 ml Optiray. Coronal and sagittal MIPS were obtained from the axial data set and were submitted for review. All measurements were obtained according to NASCET criteria. A dose lowering technique was u tilized adhering to the principles of ALARA. COMPARISON: Chest radiograph of same day FINDINGS: CTA: Heart is normal in size. No pericardial effusion. Unremarkable thoracic aorta. No pulmonary emboli. CT CHEST: Unremarkable thyroid. No lymphadenopathy. No pneumothorax, pleural effusion, airspace consolidation o r pulmonary edema. Mild patchy groundglass opacities are noted bilaterally, most pronounced throughou t the right lung. Mild associated bronchial wall thickening. Central airways are patent. No acute upper abdominal abnormality. Subsequent hypodensities in the liver are too small to characte rize, likely cysts. No acute fracture. IMPRESSION: 1. No pulmonary emboli. 2. No pleural effusion or lymphadenopathy. 3. Mild patchy bilateral groundglass densities are likely infectious or inflammatory. ACT 112: Negative or not required by law. The above report was generated using voice recognition software. It may contain grammatical, syntax o r spelling errors. Electronically signed by: Steve Galaviz M.D. 12/04/2023 8:06 PM
[2023-12-04] MEDS: ASPIRIN CHEW 324 MG PO STA (20:52)
[2023-12-04 23:03] LABS: Adenovirus PCR Not Detected (NotDetected); Bordetella parapertussis PCR Not Detected (NotDetected); Bordetella pertussis PCR Not Detected (NotDetected); Chlamydia pneumoniae PCR Not Detected (NotDetected); Coronavirus 229E PCR Not Detected (NotDetected); Coronavirus CoV-2 (COVID19)PCR Not Detected (NotDetected); Coronavirus HKU1 PCR Not Detected (NotDetected); Coronavirus NL63 PCR Not Detected (NotDetected); Coronavirus OC43PCR Not Detected (NotDetected); Human Metapneumovirus PCR Not Detected (NotDetected); Influenza A PCR Not Detected (NotDetected); Influenza B PCR Not Detected (NotDetected); Mycoplasma pneumoniae PCR Not Detected (NotDetected); Parainfluenza Virus 1 PCR Not Detected (NotDetected); Parainfluenza Virus 2 PCR Not Detected (NotDetected); Parainfluenza Virus 3 PCR Not Detected (NotDetected); Parainfluenza Virus 4 PCR Not Detected (NotDetected); Respiratory Syncytial VirusPCR Not Detected (NotDetected); Rhinovirus/Enterovirus PCR Not Detected (NotDetected)
[2023-12-04] MEDS ORDERED: ONDANSETRON INJ 2 MG/ML 2 ML VIAL IV PRN (23:36)
[2023-12-05] MEDS: LOSARTAN POTASSIUM 50 MG TAB PO ONE (00:17)
[2023-12-05] MEDS: ATORVASTATIN 20 MG TAB PO STA (00:18)
[2023-12-05] MEDS: hydroCHLOROthiazide 25 MG TAB PO STA (00:21)
[2023-12-05] MEDS: amLODIPine BESYLATE 5 MG TAB PO ONE (00:41)
[2023-12-05] MEDS ORDERED: ALBUT/IPRATROP 3MG/0.5MG NEB 3 ML VIAL NEB PRN (01:48)
--- NOTE | 2023-12-05 01:56 | History & Physical Report ---
Date of Service December 05, 2023 The patient was seen and admitted on December 04, 2023 Assessment & Plan (1) Elevated troponin: (2) GERD (gastroesophageal reflux disease): (3) Obstructive sleep apnea: (4) Hyperlipidemia: (5) Hypertension: (6) Robles's palsy: (7) Metabolic syndrome: (8) URI (upper respiratory infection): Plan Elevated troponin/hypertension- The patient will be admitted to telemetry for serial cardiac enzymes, serial EKG's, cardiac rhythm monitoring and a 2-D echocardiogram with Dopplers. Initial troponin 439.9 with follow-up for 440.2 EKG without acute findings Differential including but not limited to: Myocarditis, pericarditis, NSTEMI, supply demand mismatch Case was discussed by the ED with cardiology, without recommendation for heparin at this time Patient did receive aspirin 324 mg Continue amlodipine 5 mg daily, aspirin 81 mg every morning, losartan/HCTZ 100/12.5 daily Consult cardiology Upper respiratory infection- D-dimer was elevated at 980 CT angiography chest PE protocol was negative for PE, but did have suggestion of atypical versus viral infection Respiratory BioFire negative Azithromycin 500 mg IV daily Nebs every 2 hours as needed VENU- CPAP at at bedtime Metabolic syndrome/obesity- Glucose 123 on admission Check hemoglobin A1c Patient has been on semaglutide in the outpatient setting for weight loss Hyperlipidemia- Continue atorvastatin 20 mg daily Admission and Anticipated Discharge Date Admission Date: December 04, 2023 History of Present Illness Chief Complaint: The patient presents to the emergency department with complaint of acute onset at about 1:00 this afternoon after awakening from a nap, of substernal chest tightness, intermittently productive cough, shortness of breath and dyspnea on exertion. He then went to a local urgent care, who evaluated him including the EKG and chest x-ray, and then advised him to come to the emergency department at [facility] for assessment Primary Care Provider: Madhuri Morales MD The patient is a 53-year-old male with a past medical history including Robles's palsy, GERD, metabolic syndrome, chronic back pain, morbid obesity, VENU, impaired fasting glucose, hyperlipidemia, hypertension, and B12 deficiency. The patient reports that he had come back via airplane from [place] yesterday, and developed the symptoms noted above around 1:00 this afternoon after waking up from a nap. He does have a family member who has a respiratory infection. A fter presenting to the local urgent care, he was referred to the emergency department at [facility] for further evaluation. Allergies Allergy/AdvReac Type Severity Reaction Status Date / Time bee venom protein (honey bee) Allergy Mild Significant Verified 12/04/23 18:03 swelling to site chlorhexidine Allergy Mild Rash Verified 12/04/23 18:03 Penicillins Allergy Mild Rash Verified 12/04/23 18:03 Home Medications Medication Instructions Recorded Confirmed Type cyanocobalamin (vitamin B-12) 1,000 mcg PO QPM 12/18/21 12/04/23 History 1,000 mcg capsule celecoxib 200 mg capsule (Celebrex) 200 mg PO DAILY #90 caps 02/09/23 12/04/23 Rx omeprazole 20 mg capsule,delayed 20 mg PO DAILY #90 caps 05/14/23 12/04/23 Rx release semaglutide (weight loss) 2.4 2.4 mg (0.75 mL) subcut Q7D 28 06/03/23 12/04/23 Rx mg/0.75 mL subcutaneous pen days #3 mL injector amlodipine 5 mg tablet 5 mg PO DAILY #90 tabs 09/02/23 12/04/23 Rx atorvastatin 20 mg tablet 20 mg PO DAILY #90 tabs 09/02/23 12/04/23 Rx losartan 100 mg tablet 100 mg PO DAILY 12/04/23 12/04/23 History losartan 100 0 tab PO DAILY 12/04/23 12/04/23 History mg-hydrochlorothiazide 12.5 mg tablet Past Med/Surg History Problem List (Updated 12/05/23 @ 01:52 by Gordon Navarrete MD) URI (upper respiratory infection) Elevated troponin (Acute) Robles's palsy Epidermal cyst GERD (gastroesophageal reflux disease) (Chronic) Left knee DJD (Chronic) Metabolic syndrome (Chronic) Arthritis of right hip (Chronic) Hiatal hernia (Chronic) Chronic back pain (Chronic) Allergic rhinitis (Chronic) Morbid obesity (Chronic) BMI 44.1 Obstructive sleep apnea (Chronic) CPAP Impaired fasting glucose (Chronic) Hyperlipidemia (Chronic) Hypertension (Chronic) Medical History Robles's palsy Left knee DJD GERD (gastroesophageal reflux disease) Arthritis of right hip Metabolic syndrome Chronic back pain Hiatal hernia Allergic rhinitis Morbid obesity Obstructive sleep apnea Impaired fasting glucose Hyperlipidemia Hypertension Surgical History Status post total hip replacement, left (03/2020) History of tooth extraction History of adenoidectomy Family History Father Diabetes Cardiac disorder Myocardial infarction Hearing loss Hypertension Heart disease Brother Kidney disease Diabetes Hypertension Other No family history of adverse response to anesthesia No family history of bleeding disorder Social History (Updated 11/16/23 @ 09:03 by Blanca Hale LPN) Smoking Status: Former smoker Tobacco Type: Cigarettes Age Started Using Tobacco: 19; Age Quit Using Tobacco: 29; packs per day: 1.5; Second Hand Exposure: Yes (FATHER SMOKED); Do You Dip or Chew Tobacco: No; Hx Alcohol Use: Yes Alcohol type: beer Alcohol Intake Frequency Comment: 2-3 drinks occasionally on weekends Hx Substance Use: No Preferred Language: Yakut Communication Ability: Effective Visual Impairment: No Limitations Hearing Ability: Normal Animal Groomer Required: No Beliefs That Will Affect Care: None marital status: Current Living Situation: Spouse Current Living Situation Comment: with current occupational status: employed Other Information That Helps Us Care for You: No Feels Safe at Home: Yes Safety Concerns: Feels Safe At This Time Childhood Exposure to Second-Hand Smoke: Yes Diet: regular caffeine: Yes Dental Care, Regularly: Yes Seatbelt Use: always Sunscreen Use: Yes Assistive Devices: None Review of Systems Review of Systems: The patient denies palpitations, lower extremity swelling, sore throat, fevers, chills, sweats, nausea, vomiting, diarrhea , constipation, abdominal pain, pelvic pain, blood in urine or stool, dysuria, urinary frequency or urgency, lightheadedness, dizziness, headache, memory loss, loss of consciousness, rash, abnormal bruising or bleeding, imbalance, focal weakness, numbness or tingling in arms or legs, generalized arthralgias or myalgias, back or neck pain, or night sweats. The review of systems is otherwise negative other than for that already noted above, and at least 10 systems have been reviewed. Physical Exam Physical Exam: The patient is awake, alert and oriented 3, well developed and well nourished, normocephalic and atraumatic, sitting upright in bed and in no acute distress. HEENT--PERRL, EOMI, mucous membranes and oropharynx dry. Neck--supple. No JVD. No bruits. Thyroid normal, trachea midline, no adenopathy. Heart--normal S1 and S2. No murmurs, rubs or gallops. Lungs--overall diminished bilaterally. No respiratory distress, no accessory muscle use. Abdomen--normal bowel sounds and soft. Nontender. Nondistended. Morbidly obese Extremities-- No edema. Dermatologic--normal skin turgor, normal color, no abnormal lymph nodes, no rash. Neurologic--cranial nerves II through XII grossly intact. Rheumatologic--normal range of motion. Psychiatric--normal affect. Results & Data Results & Data Vital Signs (Past 12 Hours) Vital Signs Temp Pulse Pulse Resp BP BP Pulse Ox 12/05/23 01:11 36.6 C 89 18 168/119 H 99 12/04/23 21:35 97 H 12/04/23 20:54 99 H 20 184/121 H 97 12/04/23 18:54 97 H 22 172/117 H 98 12/04/23 17:20 100 H 12/04/23 16:51 99 12/04/23 16:45 37.1 C 102 H 18 175/129 H 99 O2 Del Method O2 Flow Rate 12/05/23 01:11 Room Air, CPAP 12/04/23 21:35 12/04/23 20:54 Room Air 12/04/23 18:54 Room Air 12/04/23 17:20 12/04/23 16:51 Room Air 0 12/04/23 16:45 Room Air Laboratory Results Laboratory Results WBC 11.77 K/ul (4.8-10.8) H 12/04/23 17:30 RBC 5.55 M/uL (4.70-6.10) 12/04/23 17:30 Hgb 15.4 g/dl (14.0-18.0) 12/04/23 17:30 Hct 47.3 % (42.0-52.0) 12/04/23 17:30 MCV 85.2 fL (80.0-100.0) 12/04/23 17:30 MCH 27.7 pg (25.0-34.0) 12/04/23 17:30 MCHC 32.6 g/dL (32.0-36.0) 12/04/23 17:30 RDW Std Deviation 41.8 fL (36.4-46.3) 12/04/23 17:30 RDW Coeff of Butch 13.4 % (11.5-14.5) 12/04/23 17:30 Plt Count 388 K/uL (130-400) 12/04/23 17:30 MPV 10.3 fL (9.4-12.4) 12/04/23 17:30 Immature Gran % (Auto) 0.4 % 12/04/23 17:30 Neut % (Auto) 73.9 % 12/04/23 17:30 Lymph % (Auto) 17.5 % 12/04/23 17:30 [facility] % (Auto) 6.5 % 12/04/23 17:30 Eos % (Auto) 1.2 % 12/04/23 17:30 Baso % (Auto) 0.5 % 12/04/23 17:30 Neut # (Auto) 8.69 K/uL (1.40-6.50) H 12/04/23 17:30 Lymph # (Auto) 2.06 K/uL (1.20-3.40) 12/04/23 17:30 [facility] # (Auto) 0.77 K/uL (0.11-0.59) H 12/04/23 17:30 Eos # (Auto) 0.14 K/uL (0.00-0.50) 12/04/23 17:30 Baso # (Auto) 0.06 K/uL (0.00-0.20) 12/04/23 17:30 Immature Gran # (Auto) 0.05 K/uL (0.01-0.20) 12/04/23 17:30 PT 10.6 Seconds (9.0-12.0) 12/04/23 17:30 INR 1.0 (0.9-1.1) 12/04/23 17:30 D-Dimer 980 ug/L FEU (0-500) H* 12/04/23 17:30 Sodium 139 mmol/L (136-145) 12/04/23 17:30 Potassium 3.7 mmol/L (3.5-5.1) 12/04/23 19:18 Chloride 106 mmol/L (98-107) 12/04/23 17:30 Carbon Dioxide 22 mmol/L (21-32) 12/04/23 17:30 Anion Gap 11 (3-11) 12/04/23 17:30 BUN 20 mg/dl (6-23) 12/04/23 17:30 Creatinine 1.04 mg/dl (0.6-1.4) 12/04/23 17:30 Est Cr Clr Drug Dosing 113.1 ml/min 12/04/23 17:30 Est GFR ( Amer) 95.2 ml/min 12/04/23 17:30 Est GFR (Non-Af Amer) 82.2 ml/min 12/04/23 17:30 BUN/Creatinine Ratio 19.2 (10-20) 12/04/23 17:30 Glucose 123 mg/dl (70-99(Fasting)) H 12/04/23 17:30 Calcium 9.5 mg/dl (8.6-10.3) 12/04/23 17:30 Total Bilirubin 0.4 mg/dl (0.2-1.0) 12/04/23 17:30 AST 15 U/L (13-39) 12/04/23 19:18 ALT 24 U/L (7-52) 12/04/23 17:30 Alkaline Phosphatase 90 U/L (34-104) 12/04/23 17:30 Troponin I High Sens 440.2 pg/ml (0-20) H* 12/04/23 19:18 Total Protein 8.3 gm/dl (6.0-8.3) 12/04/23 17:30 Albumin 4.6 gm/dl (3.4-5.0) 12/04/23 17:30 Globulin 3.7 gm/dl (2.5-4.0) 12/04/23 17:30 Albumin/Globulin Ratio 1.2 (0.9-2) 12/04/23 17:30 Lipase 65 U/L (11-82) 12/04/23 17:30 Procalcitonin 0.03 ng/ml (0-0.5) 12/04/23 17:30 Adenovirus (PCR) Not Detected (NotDetected) 12/04/23 22:02 B. pertussis DNA (PCR) Not Detected (NotDetected) 12/04/23 22:02 B.parapertussis DNA PCR Not Detected (NotDetected) 12/04/23 22:02 C. pneumoniae DNA (PCR) Not Detected (NotDetected) 12/04/23 22:02 Coronavirus OC43 (PCR) Not Detected (NotDetected) 12/04/23 22:02 Coronavirus HKU1 (PCR) Not Detected (NotDetected) 12/04/23 22:02 Coronavirus 229E (PCR) Not Detected (NotDetected) 12/04/23 22:02 SARS-CoV-2 (PCR) Not Detected (NotDetected) 12/04/23 22:02 Coronavirus NL63 (PCR) Not Detected (NotDetected) 12/04/23 22:02 Human Metapneumovir PCR Not Detected (NotDetected) 12/04/23 22:02 Influenza Type A (PCR) Not Detected (NotDetected) 12/04/23 22:02 Influenza Type B (PCR) Not Detected (NotDetected) 12/04/23 22:02 M. pneumoniae (PCR) Not Detected (NotDetected) 12/04/23 22:02 Parainfluenza 1 (PCR) Not Detected (NotDetected) 12/04/23 22:02 Parainfluenza 2 (PCR) Not Detected (NotDetected) 12/04/23 22:02 Parainfluenza 3 (PCR) Not Detected (NotDetected) 12/04/23 22:02 Parainfluenza 4 (PCR) Not Detected (NotDetected) 12/04/23 22:02 RSV (PCR) Not Detected (NotDetected) 12/04/23 22:02 Entero/Rhino (PCR) Not Detected (NotDetected) 12/04/23 22:02 Impressions Chest X-Ray 12/04/23 16:55 XR chest 1V portable HISTORY: 53 years-old Male Chest pain, nonspecific COMPARISON: 05/13/2023 TECHNIQUE: AP view of the chest FINDINGS: Lung volumes are normal. Lungs are clear. There is no pneumothorax or pleural effusion. There is moderate cardiomegaly. Mediastinal contours are normal. There is no evidence for pulmonary edema. IMPRESSION: No acute process. ACT 112: Negative or not required by law. The above report was generated using voice recognition software. It may contain grammatical, syntax or spelling errors. Electronically signed by: Steve Galaviz M.D. 12/04/2023 5:37 PM Chest CTA 12/04/23 18:45 CT angio chest PE protocol CT DOSE: 891.75 mGy.cm HISTORY: 53 years-old Male with PE. Acute shortness of breath TECHNIQUE: Multiple CTA images of the chest were obtained after the intravenous administration of 120 ml Optiray. Coronal and sagittal MIPS were obtained from the axial data set and were submitted for review. All measurements were obtained according to NASCET criteria. A dose lowering technique was utilized adhering to the principles of ALARA. COMPARISON: Chest radiograph of same day FINDINGS: CTA: Heart is normal in size. No pericardial effusion. Unremarkable thoracic aorta. No pulmonary emboli. CT CHEST: Unremarkable thyroid. No lymphadenopathy. No pneumothorax, pleural effusion, airspace consolidation or pulmonary edema. Mild patchy groundglass opacities are noted bilaterally, most pronounced throughout the right lung. Mild associated bronchial wall thickening. Central airways are patent. No acute upper abdominal abnormality. Subsequent hypodensities in the liver are too small to characterize, likely cysts. No acute fracture. IMPRESSION: 1. No pulmonary emboli. 2. No pleural effusion or lymphadenopathy. 3. Mild patchy bilateral groundglass densities are likely infectious or inflammatory. ACT 112: Negative or not required by law. The above report was generated using voice recognition software. It may contain grammatical, syntax or spelling errors. Electronically signed by: Steve Galaviz M.D. 12/04/2023 8:06 PM Code Status & VTE Plan Code Status Full code VTE Prophylaxis Plan VTE Prophylaxis will be ordered: Yes PG Care Time/CCT Total # of Minutes Spent Total Time Spent with Patient: Total time spent is greater than 50% in coordination of care (as documented) at patient's floor/unit and/or counseling patient: Coding Level of Care Code 66272 INT INP/OBS CARE 3/75MIN Diagnoses Elevated troponin R79.89 GERD (gastroesophageal reflux disease) K21.9 Obstructive sleep apnea G47.33 Hyperlipidemia E78.5 Hypertension I10 Hypertension type: unspecified Robles's palsy G51.0 Metabolic syndrome E88.81 URI (upper respiratory infection) J06.9 (5) Hypertension Hypertension type: unspecified Qualified Code(s): I10 - Essential (primary) hypertension
[2023-12-05] MEDS: AZITHROMYCIN 500 MG in DEXTROSE 5% 250 ML IV SCH (02:34)
[2023-12-05] MEDS: ACETAMINOPHEN 325 MG TAB PO PRN (06:26)
[2023-12-05] MEDS: LOSARTAN POTASSIUM 50 MG TAB PO SCH (08:47)
[2023-12-05] MEDS: ASPIRIN 81 MG ECTAB PO SCH (08:47)
[2023-12-05] MEDS: PANTOprazole 40 MG TAB PO SCH (08:47)
--- NOTE | 2023-12-05 08:51 | Electrocardiogram Report ---
Test Reason : Blood Pressure : / mmHG Vent. Rate : 104 BPM Atrial Rate : 104 BPM P-R Int : 152 ms QRS Dur : 134 ms QT Int : 380 ms P-R-T Axes : 040 -01 012 degrees QTc Int : 499 ms Sinus tachycardia with occasional Premature ventricular complexes Right bundle branch block Abnormal ECG When compared with ECG of 13-MAY-2023 21:25, Premature ventricular complexes are now Present Confirmed by Trenton Gruber ([id number]) on 12/05/2023 8:50:29 AM Referred By: REFERRED SELF Confirmed By:Trenton Gruber
--- NOTE | 2023-12-05 08:56 | Hospitalist Progress Note ---
Date of Service December 05, 2023 Assessment & Plan (1) Elevated troponin: (2) GERD (gastroesophageal reflux disease): (3) Obstructive sleep apnea: (4) Hyperlipidemia: (5) Hypertension: (6) Robles's palsy: (7) Metabolic syndrome: (8) URI (upper respiratory infection): Plan Elevated troponin/hypertension- Admitted to telemetry for serial cardiac enzymes, serial EKG's, cardiac rhythm monitoring and a 2-D echocardiogram with Dopplers. Initial troponin 439.9 with follow-up for 440.2 and then 348 EKG without acute findings. EKG this morning with no evidence of ST changes. Right bundle branch block has resolved. PVCs have also resolved. Telemetry reviewed. NSR over night with sparse PVCs. No other arrhythmias Echo without wall motion abnormalities. Preserved LVEF. Moderate mitral regurgitation. Slight elevation in pulmonary pressures. Differential including but not limited to: Myocarditis, pericarditis, NSTEMI, supply demand mismatch Case was discussed by the ED with cardiology, without recommendation for heparin at this time Patient did receive aspirin 324 mg Continue amlodipine 5 mg daily, aspirin 81 mg every morning, losartan/HCTZ 100/12.5 daily BP corrected and is now 134/98 Cardiology consulted. Appreciate Dr. Gruber's input Plan for cardiac catheterization tomorrow Upper respiratory infection- D-dimer was elevated at 980 CT angiography chest PE protocol was negative for PE, but did have suggestion of atypical versus viral infection Respiratory BioFire negative Azithromycin 500 mg IV daily Nebs every 2 hours as needed VENU- CPAP at at bedtime at 12 cm H2O Patient reports use everyday Metabolic syndrome/obesity- Glucose 123 on admission Hemoglobin A1c 5.8 Patient has been on semaglutide in the outpatient setting for weight loss Hyperlipidemia- Continue atorvastatin 20 mg daily Pulmonary hypertension Continue diuretics per cardiology and follow with PCP - patient aware SpO2 adequate on room air Admission and Anticipated Discharge Date Admission Date: December 04, 2023 Subjective Attending: Dr. Fernandez The patient was admitted this morning at 1:39 AM. He presented to the emergency department with complaint of acute onset at about 1:00 pm 12/04/2023. After awakening from a nap yesterday afternoon, he complained of substernal chest tightness, intermittently productive cough, shortness of breath and dyspnea on exertion. He then went to a local urgent care, who evaluated him including the EKG and chest x-ray, and then advised him to report to the emergency department at [facility] for assessment. He was hypertensive with a BP of 184/121. Troponin was elevated at 440.2 (0-20) and he had an elevated D-Dimer of 980 (0- 500). CTA Chest on admission was negative for PE. EKG this morning shows prolonged qTc at 508ms. RBB is no longer present. PVCs have also resolved. Repeat troponin is trending downward at 348.3. Electrolytes are balanced. Viral serologies are all negative. Review of Systems 2 Review of Systems: A total of 10 systems was reviewed and is negative other than as listed in the HPI Physical Exam 2 Physical Exam: GENERAL : No acute distress EYES: No icterus, gaze conjugate NOSE: No evidence of epistaxis MOUTH: No lesions or candidiasis NECK: Supple LUNGS: CTA B/L, no wheezes, rales or rhonchi HEART: Regular, rate controlled ABDOMEN: Soft, NT, ND, BS Present EXTREMITIES: No LE edema, pedal pulses intact NEURO: A&OX3 Results & Data Results & Data Vital Signs (Past 12 Hours) Vital Signs Temp Pulse Pulse Resp BP Pulse Ox O2 Del Method 12/05/23 08:30 36.6 C 77 18 134/98 96 Room Air 12/05/23 07:49 104 H 12/05/23 07:47 Room Air 12/05/23 02:29 36.6 C 80 18 142/94 H 98 BiPAP 12/05/23 01:11 36.6 C 89 18 168/119 H 99 Room Air, CPAP 12/04/23 23:43 101 H 12/04/23 21:35 97 H 12/04/23 20:54 99 H 20 184/121 H 97 Room Air Laboratory Results 12/04/23 17:30 12/04/23 19:18 Diagnostic Findings Chest X-Ray 12/04/23 16:55 XR chest 1V portable HISTORY: 53 years-old Male Chest pain, nonspecific COMPARISON: 05/13/2023 TECHNIQUE: AP view of the chest FINDINGS: Lung volumes are normal. Lungs are clear. There is no pneumothorax or pleural effusion. There is moderate cardiomegaly. Mediastinal contours are normal. There is no evidence for pulmonary edema. IMPRESSION: No acute process. ACT 112: Negative or not required by law. The above report was generated using voice recognition software. It may contain grammatical, syntax or spelling errors. Electronically signed by: Steve Galaviz M.D. 12/04/2023 5:37 PM L Chest CTA 12/04/23 18:45 CT angio chest PE protocol CT DOSE: 891.75 mGy.cm HISTORY: 53 years-old Male with PE. Acute shortness of breath TECHNIQUE: Multiple CTA images of the chest were obtained after the intravenous administration of 120 ml Optiray. Coronal and sagittal MIPS were obtained from the axial data set and were submitted for review. All measurements were obtained according to NASCET criteria. A dose lowering technique was utilized adhering to the principles of ALARA. COMPARISON: Chest radiograph of same day FINDINGS: CTA: Heart is normal in size. No pericardial effusion. Unremarkable thoracic aorta. No pulmonary emboli. CT CHEST: Unremarkable thyroid. No lymphadenopathy. No pneumothorax, pleural effusion, airspace consolidation or pulmonary edema. Mild patchy groundglass opacities are noted bilaterally, most pronounced throughout the right lung. Mild associated bronchial wall thickening. Central airways are patent. No acute upper abdominal abnormality. Subsequent hypodensities in the liver are too small to characterize, likely cysts. No acute fracture. IMPRESSION: 1. No pulmonary emboli. 2. No pleural effusion or lymphadenopathy. 3. Mild patchy bilateral groundglass densities are likely infectious or inflammatory. ACT 112: Negative or not required by law. The above report was generated using voice recognition software. It may contain grammatical, syntax or spelling errors. Electronically signed by: Steve Galaviz M.D. 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
[2023-12-05] MEDS: hydroCHLOROthiazide 25 MG TAB PO SCH (09:09)
--- NOTE | 2023-12-05 09:20 | Electrocardiogram Report ---
Test Reason : Blood Pressure : / mmHG Vent. Rate : 083 BPM Atrial Rate : 083 BPM P-R Int : 150 ms QRS Dur : 132 ms QT Int : 424 ms P-R-T Axes : 046 004 018 degrees QTc Int : 498 ms Normal sinus rhythm Right bundle branch block Abnormal ECG When compared with ECG of 05-DEC-2023 06:19, Premature ventricular complexes no longer present Confirmed by Trenton Gruber ([id number]) on 12/05/2023 9:20:17 AM Referred By: REFERRED SELF Confirmed By:Trenton Gruber
--- NOTE | 2023-12-05 09:32 | XCELERA ---
[id number]
--- NOTE | 2023-12-05 13:35 | Cardiology Consultation ---
Date of Consultation December 05, 2023 Assessment & Plan (1) Elevated troponin: (2) URI (upper respiratory infection): (3) Hypertension: (4) Morbid obesity: (5) Impaired fasting glucose: (6) Hyperlipidemia: Plan 53-year-old man with multiple vascular risk factors (obesity, HTN, hyperglycemia, dyslipidemia) admitted with initially respiratory symptoms consistent with either viral or possibly bacterial pneumonia. However, noted to have elevated troponin without clear etiology. Although this could have been due to to his hypertension yesterday, would expect more of a peak and decay pattern. Could also be myocarditis, possibly viral, but he is not complaining of persistent chest pain. ECG vaguely suggestive of pericarditis, but he does not have positional or pleuritic pain. At this point, the flat troponin curve and atypical symptoms would point away from acute thrombotic event. Although his primary issue appears to be pneumonia, given his elevated troponin and episodic dyspnea/chest discomfort/indigestion, after discussion of risks and benefits through shared decision making determined that he would be best served by cardiac catheterization (plan for tomorrow). In the absence of rising troponin, recurrent chest pain, ischemic ECG changes, reasonable to remain off anticoagulation (as indigestion could be gastritis), however low threshold for initiating heparin should he have recurrent chest discomfort. In addition to amlodipine, hydrochlorothiazide, losartan, consider as needed clonidine or hydralazine for any recurrent hypertension. Further recommendations based on results of cardiac catheterization. History of Present Illness Reason for Consultation: CP, elevated troponin Requesting Physician: Garrett Fernandez Attending Physician: Garrett Fernandez History of Present Illness 53-year-old man with morbid obesity, obstructive sleep apnea, impaired fasting glucose, dyslipidemia, and hypertension, but no cardiac history who was admitted 12/04/2023 with a productive cough, dyspnea on exertion, and some degree of chest discomfort, found to have elevated troponin without peak and decay and benign ECG. Initial evaluation included a chest CT which showed no evidence of pulmonary embolism but did show patchy infiltrates, serial ECGs which showed sinus rhythm with a right bundle branch block but no ST deviation, and cardiac enzymes which showed an elevated troponin (439, 440, 348, 301). Subsequent echocardiogram derek wed normal systolic function with no wall motion abnormalities, moderate LVH with moderate mitral regurgitation and mild pulmonary hypertension. Yesterday, he noted an episode of increased chest discomfort which he described as sharp and only occurring when he was coughing. He denied pleuritic chest pain, but noted that it was difficulty to catch his breath for about 45 minutes, but the symptoms passed and have not returned. No chest discomfort currently. However, he does note feelings of "indigestion" in the epigastric region which have been present since admission. His BP has been labile and varied between normotensive and moderately hypotensive (as high as 180/121 mmHg yesterday). He has been afebrile but did have a mild leukocytosis (11.77) and possible infiltrates on CT scan, therefore he has been receiving IV azithromycin for possible pneumonia. Aside from his ongoing mild "indigestion" he feels comfortable currently. Allergies Allergy/AdvReac Type Severity Reaction Status Date / Time bee venom protein (honey bee) Allergy Mild Significant Verified 12/04/23 18:03 swelling to site chlorhexidine Allergy Mild Rash Verified 12/04/23 18:03 Penicillins Allergy Mild Rash Verified 12/04/23 18:03 Home Medications Medication Instructions Recorded Confirmed Type cyanocobalamin (vitamin B-12) 1,000 mcg PO QPM 12/18/21 12/04/23 History 1,000 mcg capsule celecoxib 200 mg capsule (Celebrex) 200 mg PO DAILY #90 caps 02/09/23 12/04/23 Rx omeprazole 20 mg capsule,delayed 20 mg PO DAILY #90 caps 05/14/23 12/04/23 Rx release semaglutide (weight loss) 2.4 2.4 mg (0.75 mL) subcut Q7D 28 06/03/23 12/04/23 Rx mg/0.75 mL subcutaneous pen days #3 mL injector amlodipine 5 mg tablet 5 mg PO DAILY #90 tabs 09/02/23 12/04/23 Rx atorvastatin 20 mg tablet 20 mg PO DAILY #90 tabs 09/02/23 12/04/23 Rx losartan 100 mg tablet 100 mg PO DAILY 12/04/23 12/04/23 History losartan 100 0 tab PO DAILY 12/04/23 12/04/23 History mg-hydrochlorothiazide 12.5 mg tablet Patient History Surgical History Status post total hip replacement, left (03/2020) @ [facility] Dr. Jenkins History of tooth extraction WISDOM TEETH History of adenoidectomy Family History Father Diabetes Cardiac disorder Myocardial infarction Hearing loss Hypertension Heart disease Brother Kidney disease Diabetes Hypertension Other No family history of adverse response to anesthesia No family history of bleeding disorder Social History Smoking Status: Former smoker Tobacco Type: Cigarettes Age Started Using Tobacco: 19; Age Quit Using Tobacco: 29; packs per day: 1.5; Second Hand Exposure: Yes (FATHER SMOKED); Do You Dip or Chew Tobacco: No; Hx Alcohol Use: Yes Alcohol type: beer Alcohol Intake Frequency Comment: 2-3 drinks occasionally on weekends Hx Substance Use: No Preferred Language: Japanese Communication Ability: Effective Visual Impairment: No Limitations Hearing Ability: Normal Hogshead Opener Required: No Beliefs That Will Affect Care: None marital status: Current Living Situation: Spouse Current Living Situation Comment: with current occupational status: employed Other Information That Helps Us Care for You: No Feels Safe at Home: Yes Safety Concerns: Feels Safe At This Time Childhood Exposure to Second-Hand Smoke: Yes Diet: regular caffeine: Yes Dental Care, Regularly: Yes Seatbelt Use: always Sunscreen Use: Yes Assistive Devices: None Physical Exam Physical Exam: Adult white male who appears fairly comfortable. BP mildly hypertensive. Pulse 75 bpm and regular. Respirations 18 and unlabored. Skin: no ecchymoses or generalized lesions. HEENT: unremarkable. Neck: JVP at the clavicle at 90 degrees, no carotid bruits. Lungs: clear. No wheezing, crackles, or accessory muscle use. Cardiac: regular rhythm, normal S1-2, no murmur. Abdomen: benign. Extremities: no edema, pulses intact. Neurologic: normal affect and conversation, nonfocal. Results & Data Vital Signs (Past 12 Hours) Vital Signs Temp Pulse Pulse Resp BP BP Pulse Ox 12/05/23 11:15 98.4 F 75 18 148/102 H 96 12/05/23 08:30 97.9 F 77 18 134/98 96 12/05/23 07:49 104 H 12/05/23 07:47 12/05/23 02:29 97.9 F 80 18 142/94 H 98 O2 Del Method 05/19/24 11:15 Room Air 12/05/23 08:30 Room Air 12/05/23 07:49 12/05/23 07:47 Room Air 12/05/23 02:29 BiPAP Laboratory Results WBC 11.77, normal hemoglobin and platelet count. D-dimer elevated at 980. Normal electrolytes, BUN 20, creatinine 1.04. Glucose 123. Hemoglobin A1c 5.8%. Troponins as per HPI. Cholesterol 140, HDL 46, LDL 79, normal triglycerides Diagnostic Findings Chest x-ray unremarkable, chest CT as per HPI. ECGs as per HPI. PG Care Time/CCT Total # of Minutes Spent Total Time Spent with Patient: Total time spent is greater than 50% in coordination of care (as documented) at patient's floor/unit and/or counseling patient: Coding Level of Care Code 72530 IN/OBS CONSULT LVL 4,60M Diagnoses Elevated troponin R79.89 URI (upper respiratory infection) J06.9 Hypertension I10 Hypertension type: unspecified Morbid obesity E66.01 Impaired fasting glucose R73.01 Hyperlipidemia E78.5 (3) Hypertension Hypertension type: unspecified Qualified Code(s): I10 - Essential (primary) hypertension
[2023-12-05] MEDS: amLODIPine BESYLATE 5 MG TAB PO SCH (19:54)
[2023-12-05] MEDS: CYANOCOBALAMIN (B-12) 500 MCG TABLET PO SCH (19:55)
[2023-12-05] MEDS: ATORVASTATIN 20 MG TAB PO SCH (19:55)
--- NOTE | 2023-12-06 11:44 | Pre Anesthesia Assessment ---
Date of Service December 06, 2023 Pre Sedation Assessment Vital Signs Temp Pulse Pulse Resp BP BP Pulse Ox 12/06/23 11:09 98.4 F 96 H 18 166/107 H 95 12/06/23 10:58 98.4 F 87 18 144/98 H 99 12/06/23 08:12 98.4 F 83 18 155/110 H 96 12/06/23 07:19 97.9 F 77 18 131/90 98 12/06/23 07:12 84 12/06/23 02:17 98.1 F 83 18 140/88 97 12/05/23 22:16 98.2 F 84 18 135/91 96 12/05/23 21:51 83 12/05/23 20:28 12/05/23 19:59 98.6 F 95 H 18 149/94 H 99 12/05/23 15:32 97.9 F 92 H 19 152/88 H 100 12/05/23 15:09 88 O2 Del Method 12/06/23 11:09 Room Air 12/06/23 10:58 Room Air 12/06/23 08:12 Room Air 12/06/23 07:19 CPAP 12/06/23 07:12 12/06/23 02:17 Room Air 12/05/23 22:16 CPAP 12/05/23 21:51 12/05/23 20:28 Room Air 12/05/23 19:59 Room Air 12/05/23 15:32 Room Air 12/05/23 15:09 Cardiovascular + regular rate Respiratory + respiratory effort normal Pre-Sedation Airway Assessment Smoking Status: Former smoker Hx Sleep Apnea: Yes Hx Difficult Intubation: No Short, Thick Neck: Yes Thyromental Distance: < 3.5 Finger Breadths Oral Cavity: + WNL Mallampati Class: I ASA: ASA2 NPO Status Date of Last Intake of Fluids: 12/06/23 Last Oral Intake of Fluids Comment: Sips with meds Date of Last Intake of Solid Food: 12/05/23 Procedure Planning Contraindications for Sedation: none Current Medications Reviewed: Yes Notes The planned sedation has been discussed with the patient. Informed Consent was obtained. I have identified the patient, determined the appropriateness of sedation and have assessed the patient immediately prior to the procedure. All medicine(s) and interventions are by my order.
--- NOTE | 2023-12-06 12:30 | Post Anesthesia Assessment ---
Date of Service December 06, 2023 Post Sedation Assessment Vital Signs Temp Pulse Pulse Resp BP BP Pulse Ox 12/06/23 12:25 89 16 146/101 H 93 12/06/23 11:09 98.4 F 96 H 18 166/107 H 95 12/06/23 10:58 98.4 F 87 18 144/98 H 99 12/06/23 08:12 98.4 F 83 18 155/110 H 96 12/06/23 07:19 97.9 F 77 18 131/90 98 12/06/23 07:12 84 12/06/23 02:17 98.1 F 83 18 140/88 97 12/05/23 22:16 98.2 F 84 18 135/91 96 12/05/23 21:51 83 12/05/23 20:28 12/05/23 19:59 98.6 F 95 H 18 149/94 H 99 12/05/23 15:32 97.9 F 92 H 19 152/88 H 100 12/05/23 15:09 88 O2 Del Method 12/06/23 12:25 Room Air 12/06/23 11:09 Room Air 12/06/23 10:58 Room Air 12/06/23 08:12 Room Air 12/06/23 07:19 CPAP 12/06/23 07:12 12/06/23 02:17 Room Air 12/05/23 22:16 CPAP 12/05/23 21:51 12/05/23 20:28 Room Air 12/05/23 19:59 Room Air 12/05/23 15:32 Room Air 12/05/23 15:09 Recovery Score Activity: Moves 4 extremities Respiration: Deep Breath/Cough Circulation: +/-20% PreAnes Value Consciousness: Fully Awake Oxygen Saturation: > 92% On Room Air Post Anesthesia Score: 10 Discharge Sedation Level of Care: Fast Track Phase II Post Sedation Plan On clinical assessment, the patient appears to have tolerated the sedation without complications. Patient is recovering as anticipated. Patient will continue to be monitored by nursing and may be discharged when sedation discharge criteria are met per below protocol. Upon Completions of procedure up to 15 minutes continue every 5 minute vital signs and the P.A.R. score; then discharge to a Phase I or Fast Track to Phase II per the following guidelines: * Discharge Patient to appropriate Phase II area if PAR is 8 or greater or return to pre- procedure baseline. The post - procedure orders will be as directed. * If PAR score is less than 8 or not return to pre-procedure baseline then patient will follow Phase I monitoring till PAR is reached for Phase II. The Phase I may be done in procedure room or may call to secure a Phase I area. * If naloxone or flumazenil are used for reversal, hold in Phase I for continued monitoring from when last reversal dose was given for a minimum of 60 minutes or longer pending the nurse and/or physician discretion of patient condition before discharge to Phase II. Please call the Sedation Physician to re-evaluate and complete post-note for discharge to Phase II area. Do NOT discharge from procedure sedation or Phase 1 until post- sedation evaluation note is complete by procedure /sedation MD Sedation Discharge Instructions to be given to the patient at discharge to home.
--- NOTE | 2023-12-06 12:41 | Cardiac Catheterization ---
[facility] Data: Dermatologist And Dermatopathologist Cardiac Status Clinical evaluation leading to the procedure CAD Presenation: Non STEMI Anginal Classification: CCS III Diagnostic Physicians Name: Jin Pinedo MD Closure Device Recommendations: Medical Therapy and/or Counseling Cardiac Cath Procedure Full Procedure Date December 06, 2023 Pre-Procedure Diagnosis Pre-Procedure Diagnosis: Non STEMI AUC Score AUC Score: 7 Post-Procedure Diagnosis Post-Procedure Diagnosis: Mild CAD and Elevated Intracardiac Pressures Procedure(s) Performed Procedure(s) Performed: Coronary Angiography, Left Heart Cath and Ultrasound Guided Vascular Access Drafter Mechanical Jin Pinedo MD Securities Settlement Processor(s) Patsy Estimated Blood Loss Estimated Blood Loss: 15 Medication(s) Medication(s): Fentanyl, Heparin, Lidocaine 1%, Nicardipine, Nitroglycerin and Versed Summary of Findings Indication: NSTEMI Access: 6 Fr right radial artery under ultrasound guidance Catheters: Hayes, diagnostic JR4, diagnostic 6 Fr JL 3.5 Findings: LM -normal caliber, no significant disease LAD -medium caliber, 20 to 30% earlymid segment stenosis at takeoff of D1, distal vessel extends around apex. Large D1 without significant disease. Circumflex -medium caliber, 25% mid segment stenosis, distal vessel without significant disease. 40% ostial stenosis of OM 2. RCA -dominant, large caliber, mid segment luminal regularities. LVEDP -19 Arterial Closure: TR band Summary: 1. Mild nonobstructive coronary artery disease -20-30% earlymid LAD stenosis at takeoff of D1 25% mid circumflex, 40% ostial OM2 2. Borderline intracardiac filling pressure Recommendations: No acute or high risk findings to explain patient's mild troponin elevation. Continued ASCVD risk factor modification Hemodynamics Rest Ao:: 157/111/132 Final Ao: 177/105/121 LV: 164/19 Recommendations Recommendations: Medical Therapy and/or Counseling Specimens Specimens: None Radiation Exposure (mGy) 1459 Contrast (mls) 85 Anesthesia Moderate [id number] Procedural Complication(s) None Disposition PCU I attest to the content of the Intraoperative Record and any orders documented therein. Any exceptions are noted below. [employer] Card Cath Procedure Codes Cardiac Catheterization Procedure 1: Cardiovascular Cath Procedures: 92558 Coronaries and LHC (+/-LV) Therapeutic Services & Ancillary Procedure 1: Cardiovascular Tx and Anc Procedures: 63690 Ultrasonic Guidance Vascular Access Moderate Sedation Procedure 1: Sedation/Anesthesia: 97737 Mod Sedation by the same physician;Init15 Min Child Age 5 & Up PG Care Time/CCT Total # of Minutes Spent Total Time Spent with Patient: Total time spent is greater than 50% in coordination of care (as documented) at patient's floor/unit and/or counseling patient:
[2023-12-06] MEDS: fentaNYL citrate PF 100 MCG/2 ML VIAL ONE (13:45)
[2023-12-06] MEDS: HEPARIN (PORCINE) 1000 UNIT/ML 10 ML (CATH LAB USE ONLY) ONE (13:45)
[2023-12-06] MEDS: OPTIRAY 350 ONE (13:46)
[2023-12-06] MEDS: MIDAZOLAM HCL 1 MG/ML 2ML VIAL ONE (13:46)
[2023-12-06] MEDS: niCARdipine HCL INJ 2.5 MG/ML 10 ML AMP ONE (13:46)
[2023-12-06] MEDS: NITROGLYCERIN/D5W 100MCG/ML 20ML SYR ONE (13:46)
--- NOTE | 2023-12-06 15:18 | Cardiology Progress Note ---
Date of Service December 06, 2023 Assessment & Plan (1) Elevated troponin: (2) URI (upper respiratory infection): (3) Hypertension: (4) Morbid obesity: (5) Impaired fasting glucose: (6) Hyperlipidemia: Plan Patient doing well, only non-occlusive CAD on cath, therefore non-specific symptoms (SOB, indigestion) appear non-cardiac. OK for discharge from cardiac perspective. Continue vascular risk factor modification as outpatient. Troponin elevation may be mild myocarditis vs. demand ischemia from labile hypertension, would check outpatient troponin later this week to ensure values continue to decline/normalize. If they do not, more likely myocarditis than demand ischemia. No specific treatment for myocarditis aside from avoiding physical exertion. Could hold aspirin for now given indigestion, resume eventually given non- occlusive CAD. May need better BP control, consider trial of clonidine or labetalol as outpatient. Would also consider clonidine for PRN use (acute BP elevations). Admission and Anticipated Discharge Date Admission Date: December 05, 2023 Subjective Cardiac catheterization showed only non-occlusive CAD. Patient notes mild chest pressure, no SOB, palpitations, or lightheadedness. Telemetry benign. Physical Exam Physical Exam: No distress. BP normotensive. Pulse 95 bpm and regular. Respirations 18 and unlabored. Skin: no ecchymoses or generalized lesions. HEENT: unremarkable. Neck: JVP at the clavicle at 90 degrees, no carotid bruits. Lungs: clear. No wheezing, crackles, or accessory muscle use. Cardiac: regular rhythm, normal S1-2, no murmur. Abdomen: benign. Extremities: no edema, pulses intact. Neurologic: normal affect and conversation, nonfocal. Results & Data Laboratory Results Normal electrolytes, BUN 20, Cr 1.04. PG Care Time/CCT Total # of Minutes Spent Total Time Spent with Patient: Total time spent is greater than 50% in coordination of care (as documented) at patient's floor/unit and/or counseling patient: Coding Level of Care Code 79206 SUB INP/OBS CARE 3/50MIN Diagnoses Elevated troponin R79.89 URI (upper respiratory infection) J06.9 Hypertension I10 Hypertension type: unspecified Morbid obesity E66.01 Impaired fasting glucose R73.01 Hyperlipidemia E78.5 (3) Hypertension Hypertension type: unspecified Qualified Code(s): I10 - Essential (primary) hypertension
--- NOTE | 2023-12-06 17:48 | Discharge Summary ---
Discharge Summary Date of Service December 06, 2023 Notes For Next Care Provider presented with chest pain, and elevated D-dimer. CTA negative for PE. Heart catheterization nonocclusive coronary artery disease, medical optimization. Possible mild myocarditis versus demand ischemiarecheck troponin ordered for later this week, results will go to Dr. Gruber starting baby aspirin 80 mg once a daycardiology recommended he could delay this a few weeks with current GI symptoms Medication Changes From Visit aspirin 81 mg daily nitroglycerin sublingual as needed Admission HPI Per Admitting Provider The patient is a 53-year-old male with a past medical history including Robles's palsy, GERD, metabolic syndrome, chronic back pain, morbid obesity, VENU, i mpaired fasting glucose, hyperlipidemia, hypertension, and B12 deficiency. The patient reports that he had come back via airplane from [place] yesterday, and developed the symptoms noted above around 1:00 this afternoon after waking up from a nap. He does have a family member who has a respiratory infection. After presenting to the local urgent care, he was referred to the emergency department at [facility] for further evaluation. Principal Dx & Hospital Course #1 = Principal Diagnosis (1) Elevated troponin: (2) GERD (gastroesophageal reflux disease): (3) Obstructive sleep apnea: (4) Hyperlipidemia: (5) Hypertension: (6) Robles's palsy: (7) Metabolic syndrome: (8) URI (upper respiratory infection): Plan Elevated troponin/hypertension- Initial troponin 439.9 with follow-up for 440.2 and then 348 EKG without acute findings. EKG this morning with no evidence of ST changes. Right bundle branch block has resolved. PVCs have also resolved. Echo without wall motion abnormalities. Preserved LVEF. Moderate mitral regurgitation. Slight elevation in pulmonary pressures. Differential including but not limited to: Myocarditis, pericarditis, NSTEMI, supply demand mismatch Continue amlodipine 5 mg daily, aspirin 81 mg every morning, losartan/HCTZ 100/12.5 daily - patient was supposed to start hydrochlorothiazide 12/04, recommended he continue this at discharge. Will defer additional increasing BP meds at this time Cardiology consulted - s/p Cardiac cath on 12/05 with non occulsive CAD. Recommend ASCVD risk factor management - Recheck troponin later this week (ordered) - can hold ASA for now, eventually rsume - may need better BP control as outpatient Upper respiratory infection- D-dimer was elevated at 980 CT angiography chest PE protocol was negative for PE, but did have suggestion of atypical versus viral infection Respiratory BioFire negative treated empirically with Azithromycin 500 mg VENU- continue cpap use Metabolic syndrome/obesity- Hemoglobin A1c 5.8 can continue semaglutide in the outpatient setting - question contributing to GI symptoms Hyperlipidemia- Continue atorvastatin 20 mg daily Pulmonary hypertension Continue diuretics per cardiology and follow with PCP - patient aware SpO2 adequate on room air Discharge Exam General: NAD, VS as above Resp: normal respiratory effort, lungs clear to auscultation . Tenderness to palpation over sternum CV: RRR, no murmur, Abd: normal bowel sounds, non tender, no hepatosplenomegaly Extremities: Moves all extremities, no edema. Right radial cath site without hematoma. Neuro: A&O x3, Skin: intact, no lesions noted Updated Medication List Medication Instructions Recorded Confirmed Type cyanocobalamin (vitamin B-12) 1,000 mcg PO QPM 12/18/21 12/04/23 History 1,000 mcg capsule celecoxib 200 mg capsule (Celebrex) 200 mg PO DAILY #90 caps 02/09/23 12/04/23 Rx omeprazole 20 mg capsule,delayed 20 mg PO DAILY #90 caps 05/14/23 12/04/23 Rx release semaglutide (weight loss) 2.4 2.4 mg (0.75 mL) subcut Q7D 28 06/03/23 12/04/23 Rx mg/0.75 mL subcutaneous pen days #3 mL injector amlodipine 5 mg tablet 5 mg PO DAILY #90 tabs 09/02/23 12/04/23 Rx atorvastatin 20 mg tablet 20 mg PO DAILY #90 tabs 09/02/23 12/04/23 Rx losartan 100 0 tab PO DAILY 12/04/23 12/04/23 History mg-hydrochlorothiazide 12.5 mg tablet aspirin 81 mg tablet,delayed 81 mg PO QAM #30 tabs 12/06/23 Rx release nitroglycerin 0.4 mg sublingual 0.4 mg sublingual Q5M PRN chest 12/06/23 Rx tablet pain #30 tabs Hospital Stay Data Consultations 12/04/23 20:40 ED Decision to Admit Stat 12/04/23 20:41 Consult Cardiology Routine 12/06/23 14:14 Consult Cardiac Catheterization Routine Procedures Performed Operation Date: 12/06/23 08:00 Actual Procedures p Cineradiography w/Routine Exam - Jin Pinedo MD p Cath, Left with Cors and Vent - Jin Pinedo MD s Ultrasound Vascular Access - Jin Pinedo MD Diagnostic Imagining Performed Chest X-Ray 12/04/23 16:55 XR chest 1V portable HISTORY: 53 years-old Male Chest pain, nonspecific COMPARISON: 05/13/2023 TECHNIQUE: AP view of the chest FINDINGS: Lung volumes are normal. Lungs are clear. There is no pneumothorax or pleural effusion. There is moderate cardiomegaly. Mediastinal contours are normal. There is no evidence for pulmonary edema. IMPRESSION: No acute process. ACT 112: Negative or not required by law. The above report was generated using voice recognition software. It may contain grammatical, syntax or spelling errors. Electronically signed by: Steve Galaviz M.D. 12/04/2023 5:37 PM Chest CTA 12/04/23 18:45 CT angio chest PE protocol CT DOSE: 891.75 mGy.cm HISTORY: 53 years-old Male with PE. Acute shortness of breath TECHNIQUE: Multiple CTA images of the chest were obtained after the intravenous administration of 120 ml Optiray. Coronal and sagittal MIPS were obtained from the axial data set and were submitted for review. All measurements were obtained according to NASCET criteria. A dose lowering technique was utilized adhering to the principles of ALARA. COMPARISON: Chest radiograph of same day FINDINGS: CTA: Heart is normal in size. No pericardial effusion. Unremarkable thoracic aorta. No pulmonary emboli. CT CHEST: Unremarkable thyroid. No lymphadenopathy. No pneumothorax, pleural effusion, airspace consolidation or pulmonary edema. Mild patchy groundglass opacities are noted bilaterally, most pronounced throughout the right lung. Mild associated bronchial wall thickening. Central airways are patent. No acute upper abdominal abnormality. Subsequent hypodensities in the liver are too small to characterize, likely cysts. No acute fracture. IMPRESSION: 1. No pulmonary emboli. 2. No pleural effusion or lymphadenopathy. 3. Mild patchy bilateral groundglass densities are likely infectious or inflammatory. ACT 112: Negative or not required by law. The above report was generated using voice recognition software. It may contain grammatical, syntax or spelling errors. Electronically signed by: Steve Galaviz M.D. 12/04/2023 8:06 PM Pending Results Patient Have Any Pending Studies at Discharge: No Discharge Instructions Given to Patient (Per Discharging Provider) Mr. Wilkerson You were hospitalized after an episode of chest pain and also having elevated heart enzyme levels (troponin) because of this, you underwent a cardiac catheterization that showed non-occlusive coronary artery disease. The best way to treat this is to manage your risk factors - high blood pressure, diet, weight, cholesterol, etc. You should take a baby aspirin 81 mg everyday - this is to help reduce the risk of heart disease. This can be purchased over the counter, any brand is fine. We also did a CT scan of your chest that did not show any blood clots in your lungs. It did show some inflammatory/infectious changes that are likely from a viral infection - which may be the root cause of some of your symptoms as well. The surtass analyst thought the elevation of your troponin may be due to mild myocarditis which is inflammation of your heart muscle - the treatment for this is rest. AVOID physical exertion until your troponin level is repeated later this week. This can be done at any [facility] lab - results will go to the surtass analyst and your PCP. Please reach out to them if you do not hear about your results. I am not making any changes to your medications - you should continue to increase your blood pressure medication to have the hydrochlorothiazide like your PCP prescribed. The chest pain may be from your heart burn - continue your omeprazole, or a musculoskeletal injury/soreness from coughing from a viral infection - which the treatment for that is supportive care, rest, heat, tylenol for pain. CONTACT YOUR PRIMARY CARE PROVIDER if you experience any of the following: Shortness of breath or difficulty breathing Fevers or chills Feeling tired with normal activity or experiencing dizziness or fainting Difficulty following your treatment plan, or difficulty taking medications CALL 911 OR GO TO THE EMERGENCY DEPARTMENT if you experience any of the following: Severe abdominal pain or nausea/vomiting Severe chest pain, or chest pain that radiates (moves) to your jaw or arm Sudden, severe shortness of breath or difficulty breathing Thank you for allowing us to participate in your care. Instruction regarding care after the cardiac cath are below. Total Time Total Time Spent Total Time Spent (In Minutes): Time spend day of discharge 40 minutes including direct patient care, medication reconciliation, documentation, review of labs and images, and coordination of care. Famly updated at bedside Coding Level of Care Code 15144 INP/OBS DISCH >30 MIN Diagnoses Elevated troponin R79.89 GERD (gastroesophageal reflux disease) K21.9 Obstructive sleep apnea G47.33 Hyperlipidemia E78.5 Hypertension I10 Hypertension type: unspecified Robles's palsy G51.0 Metabolic syndrome E88.81 URI (upper respiratory infection) J06.9
== END 2023-12-06 18:33 | disposition home or self-care (01) | DRG 287 ==
LOC: 4W 16:43 → ED 16:43 → SUATTDRO 23:00 → 4W 23:52

== ENCOUNTER 2024-07-17 07:29 | Observation (INO) ==
--- NOTE | 2024-06-12 08:52 | PAT Medication Instructions ---
Medication Instructions Date of Service June 12, 2024 Home Medications Medication Instructions Recorded nitroglycerin 0.4 mg sublingual 0.4 mg sublingual Q5M PRN chest 12/06/23 tablet pain #30 tabs albuterol sulfate 90 mcg/actuation 2 puff inhalation Q6H PRN 12/17/23 aerosol inhaler (Ventolin HFA) shortness of breath or wheezing #8.5 grams clopidogrel 75 mg tablet (Plavix) 75 mg PO .COMPLEX #45 tabs 03/21/24 Zepbound 15 mg/0.5 mL subcutaneous 15 mg (0.5 mL) subcut Q7D #2 mL 05/22/24 pen injector (tirzepatide (weight loss)) cyanocobalamin (vitamin B-12) 1,000 mcg capsule 1,000 mcg PO QPM nitroglycerin 0.4 mg sublingual tablet 0.4 mg sublingual Q5M PRN albuterol sulfate 90 mcg/actuation aerosol inhaler (Ventolin HFA) 2 puff inhalation Q6H PRN clopidogrel 75 mg tablet (Plavix) 75 mg PO .COMPLEX Zepbound 15 mg/0.5 mL subcutaneous pen injector (tirzepatide (weight loss)) 15 mg (0.5 mL) subcut Q7D fluticasone propionate 50 mcg/actuation nasal spray,suspension (Flonase Allergy Relief) 1 spray intranasal BID PRN magnesium oxide 400 mg PO QAM amlodipine 5 mg tablet 5 mg PO QPM atorvastatin 20 mg tablet 20 mg PO QPM celecoxib 200 mg capsule (Celebrex) 200 mg PO QAM metformin 500 mg 24 hr tablet,extended release (gastric retention) 500 mg PO QAM olmesartan 40 mg-hydrochlorothiazide 12.5 mg tablet 1 tab PO QAM omeprazole 20 mg capsule,delayed release 20 mg PO QAM STOP 7 days before surgery Zepbound 15 mg/0.5 mL subcutaneous pen injector (tirzepatide (weight loss)) 15 mg (0.5 mL) subcut Q7D Continue as directed nitroglycerin 0.4 mg sublingual tablet 0.4 mg sublingual Q5M PRN(if needed) ASK your surgeon for instructions celecoxib 200 mg capsule (Celebrex) 200 mg PO QAM ASK your prescriber and surgeon clopidogrel 75 mg tablet (Plavix) 75 mg PO .COMPLEX(in order for spinal or epidural anesthesia, Plavix needs to be stopped 7 days before surgery. Please check if okay with doctor that prescribes this to you) DO NOT take the morning of surgery magnesium oxide 400 mg PO QAM metformin 500 mg 24 hr tablet,extended release (gastric retention) 500 mg PO QAM olmesartan 40 mg-hydrochlorothiazide 12.5 mg tablet 1 tab PO QAM Take morning of surgery With a small sip of water, OTHERWISE NOTHING TO EAT OR DRINK AFTER MIDNIGHT: albuterol sulfate 90 mcg/actuation aerosol inhaler (Ventolin HFA) 2 puff i nhalation Q6H PRN(use if needed; please bring with you to hospital day of surgery if possible) fluticasone propionate 50 mcg/actuation nasal spray,suspension (Flonase Allergy Relief) 1 spray intranasal BID PRN(if needed) omeprazole 20 mg capsule,delayed release 20 mg PO QAM Take evening before surgery cyanocobalamin (vitamin B-12) 1,000 mcg capsule 1,000 mcg PO QPM albuterol sulfate 90 mcg/actuation aerosol inhaler (Ventolin HFA) 2 puff inhalation Q6H PRN(if needed) fluticasone propionate 50 mcg/actuation nasal spray,suspension (Flonase Allergy Relief) 1 spray intranasal BID PRN(if needed) amlodipine 5 mg tablet 5 mg PO QPM atorvastatin 20 mg tablet 20 mg PO QPM Other Notes If you have any questions please call us at [phone] or [phone] or [phone] or [phone]
--- NOTE | 2024-06-19 08:21 | Anesthesiology Consultation ---
Date of Service June 19, 2024 Assessment & Plan (1) Encounter for pre-operative examination: - Check BSG DOS - Plavix instructions: patient made aware that for neuraxial anesthesia, Plavix needs to be held 7 days prior to surgery. Patient voiced understanding/will check if okay with prescriber. - Infectious disease screening: Per assessment on 06/19/24- No known recent infectious disease contacts or current infectious disease symptoms. - Outpatient joint assessment: Pt currently scheduled for inpatient pathway. If surgeon requests review for outpatient joint pathway, patient is not recommended candidate for outpatient joint program from anesthesia standpoint based on available information. - Zepbound instructions: Patient informed by PAT to stop 7 days prior to surgery - voiced understanding. DOS 07/17/24. Advised last dose to be 07/08/24. - S/P Left CARLOS (03/22/2020): Multiple attempts at SAB- unsuccessful d/t bone/anatomy > [place] (MAC#4 > Glidescope#3, ETT 7.5, "atraumatic") at [facility] - Hx Cholorihexidine allergy: Localized Rash when chlorhexidine wipes used with 2019 Left CARLOS. Chlorhexidine wipes not provided at PAT visit due to previous reaction and alternative preop cleansing methods provided- patient voiced understanding. - Cardiology workload note to PCP (12/23/23): "Glad to see that his troponin has normalized, he probably had demand ischemia from uncontrolled hypertension. Sin ce he does have some coronary artery disease, antiplatelet agent would offer prophylaxis from myocardial infarction due to plaque rupture. I took the liberty of adding aspirin to his "allergies" under the heading of an intolerance, to remind us and anyone else that he is not likely to take aspirin. I think clopidogrel would be a good idea, you could even put him on 75 mg every other day to achieve antiplatelet effect without the need for more dramatic platelet imbibition that we seek after coronary stents. In my experience, many folks who can't tolerate the GI effects of aspirin are able to tolerate clopidogrel, as long as they don't have actual GI bleeding. Glad to see him in follow-up at some point, but I think the main issue will be attaining BP control. I don't know if he is taking the clonidine, but I found this very helpful for folks like him to have extremely labile blood pressures." - Awaiting upcoming routine PCP visit (NALLELYG, appt 07/07). Patient otherwise acceptable risk for surgery. Chart Review Chart Review: Patient seen in Pre Admission Testing Teaching & Discussion Pre-Anesthesia Teaching/Discussion Notes: Instructed NPO after midnight before surgery,except medications with 15 cc of water. Medication instructions provided according to the PAT guidelines. History Surgery Operation Date: 07/17/24 12:00 Proposed Procedures p Right Anterior Total Hip Arthroplasty - Feliberto Cazares DO Height/Weight Height: 5 ft 9.5 in Weight: 128 kg Allergies Allergy/AdvReac Type Severity Reaction Status Date / Time bee venom protein (honey bee) Allergy Mild Significant Verified 06/09/24 15:01 swelling to site chlorhexidine Allergy Mild Rash Verified 06/09/24 15:01 Penicillins Allergy Mild Rash Verified 06/09/24 15:01 aspirin AdvReac Mild Abdominal Verified 06/09/24 15:01 Pain for long period of time Medications Home Medications Medication Instructions Recorded Confirmed Last Taken cyanocobalamin (vitamin B-12) 1,000 mcg PO QPM 12/18/21 06/09/24 12/03/23 1,000 mcg capsule nitroglycerin 0.4 mg sublingual 0.4 mg sublingual Q5M PRN chest 12/06/23 06/09/24 Unknown tablet pain #30 tabs albuterol sulfate 90 mcg/actuation 2 puff inhalation Q6H PRN 12/17/23 06/09/24 Unknown aerosol inhaler (Ventolin HFA) shortness of breath or wheezing #8.5 grams clopidogrel 75 mg tablet (Plavix) 75 mg PO .COMPLEX #45 tabs 03/21/24 06/09/24 Unknown Zepbound 15 mg/0.5 mL subcutaneous 15 mg (0.5 mL) subcut Q7D #2 mL 05/22/24 06/09/24 Unknown pen injector (tirzepatide (weight loss)) fluticasone propionate 50 1 spray intranasal BID PRN Nasal 05/23/24 06/09/24 Unknown mcg/actuation nasal Congestion spray,suspension (Flonase Allergy Relief) magnesium oxide 400 mg PO QAM 05/23/24 06/09/24 Unknown amlodipine 5 mg tablet 5 mg PO QPM 06/09/24 06/09/24 Unknown atorvastatin 20 mg tablet 20 mg PO QPM 06/09/24 06/09/24 Unknown celecoxib 200 mg capsule (Celebrex) 200 mg PO QAM 06/09/24 06/09/24 Unknown metformin 500 mg 24 hr 500 mg PO QAM 06/09/24 06/09/24 Unknown tablet,extended release (gastric retention) olmesartan 40 1 tab PO QAM 06/09/24 06/09/24 Unknown mg-hydrochlorothiazide 12.5 mg tablet omeprazole 20 mg capsule,delayed 20 mg PO QAM 06/09/24 06/09/24 Unknown release Past Medical History Medical History Arthritis 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) Coronary artery disease Cardiac cath 11/2023: non-occlusive disease Elevated troponins during [facility] admission felt to be r/t demand ischemia per [place] cardiology workload note 12/21/23- D/t ASA intolerance of GI effects, cardio recommends Plavix 75mg QOD Epidermal cyst "Very small" Neck region GERD (gastroesophageal reflux disease) Hiatal hernia Per records History of stomach ulcers Hyperlipidemia Hypertension Metabolic syndrome Per records Morbid obesity Prediabetes Taking Metformin Sleep apnea CPAP (compliant) Exercise / Class Metabolic Activity III < 4 Walking/Shop/Light housework (one FS: No CP, + mild SOB) Past Family History Family History Father Diabetes Cardiac disorder Myocardial infarction Hearing loss Hypertension Heart disease Brother Kidney disease Diabetes Hypertension Other No family history of adverse response to anesthesia No family history of bleeding disorder Past Surgical History Surgical History History of adenoidectomy History of cardiac cath 11/2023- no stents History of colonoscopy History of esophagogastroduodenoscopy (EGD) History of myringotomy Status post total hip replacement, left Left CARLOS (03/22/2020): Multiple attempts at SAB- unsuccessful d/t bone/anatomy > [place] (MAC#4 > Glidescope#3, ETT 7.5, "atraumatic") at [facility] [place] teeth removed Past Anesthesia History No Family Hx of Anesthesia Complications and Other (Left CARLOS (03/22/2020): Multiple attempts at SAB- unsuccessful d/t bone/anatomy > [place] (MAC#4 > Glidescope#3, ETT 7.5, "atraumatic") at [facility]) History of PONV No Hx of PONV and No Hx of Motion Sickness Social History Smoking Status: Former smoker Do You Dip or Chew Tobacco: No Smoking End Date: Quit 1999 Hx Alcohol Use: Yes Alcohol type: beer and hard liquor alcohol intake frequency: a few times a month Hx Substance Use: No substance use type: does not use Review of Systems Patient denies chest pain, shortness of breath, fever, chills, cough, wheezing, palpitations. Physical Exam Vital Signs BP 142/99 P 93 TEMP 98.0 SP02 100%RA RESP 16 Physical Full cervical extension range of motion. Full TMJ range of motion. TMD 3 finger breaths Mallampati Score III Dentition: intact Lungs: clear throughout to auscultation Cardiac: regular rate and rhythm, no murmurs noted Spine: normal Carotid arteries: negative bruit Extremities: no LE edema Short, thick neck Lab Results Anesthesia Preop Results Results Anesthesia Widget: WBC 6.95 K/ul (4.8-10.8) 06/19/24 Hgb 14.6 g/dl (14.0-18.0) 06/19/24 Hct 44.4 % (42.0-52.0) 06/19/24 Plt 335 K/uL (130-400) 06/19/24 Na 137 mmol/L (136-145) 06/19/24 K 4.1 mmol/L (3.5-5.1) 06/19/24 Cl 102 mmol/L (98-107) 06/19/24 CO2 28 mmol/L (21-32) 06/19/24 BUN 28 mg/dl (6-23) H 06/19/24 Creat 1.15 mg/dl (0.6-1.4) 06/19/24 Glucose Level 102 mg/dl (70-99(Fasting)) H 06/19/24 PT 10.2 Seconds (9.0-12.0) 06/19/24 PTT 26 Seconds (21-31) 06/19/24 INR 0.9 (0.9-1.1) 06/19/24 HA1c 5.7 % (4.5-5.6) H 06/19/24 Blood Type A Positive 06/19/24 Antibody Screen NEGATIVE 06/19/24 Testing Electrocardiogram Date: 12/05/23 NSR at 83bpm. RBBB. Chest X-Ray Date: 12/04/23 FINDINGS: Lung volumes are normal. Lungs are clear. There is no pneumothorax or pleural effusion. There is moderate cardiomegaly. Mediastinal contours are normal. There is no evidence for pulmonary edema. IMPRESSION: No acute process. Echocardiogram Date: 12/05/23 LVEF 55-60%. LV wall motion is normal. Moderate cLVH. Moderate MR. Mild LAD. RVSP 30-40mmhg. Mild pulmonary HTN. Cardiac Catheterization Date: 12/06/23 Summary: 1. Mild nonobstructive coronary artery vaadcum-19-47% earlymid LAD stenosis at takeoff of D1 25% mid circumflex, 40% ostial OM2 2. Borderline intracardiac filling pressure Recommendations: No acute or high risk findings to explain patient's mild troponin elevation. Continued ASCVD risk factor modification.
--- NOTE | 2024-07-13 07:52 | History & Physical Report ---
Date of Service July 13, 2024 Assessment & Plan (1) Osteoarthritis of right hip: We will proceed with a right anterior total of arthroplasty. Postoperatively he will be started back on aspirin and Plavix for DVT prophylaxis and kept overnight in the hospital for postop medical management. He plans to have the hospital set up home health for discharge. History of Present Illness Chief Complaint: Osteoarthritis of the right hip. Primary Care Provider: Madhuri Morales MD Roderick is a pleasant 53-year-old male who has been dealing with chronic increa sing right hip and groin pain. He has a history of a left hip replacement done by Dr. Jenkins in the past. He has done fairly well with that. Unfortunately, he is dealing with a lot of right hip pain. It is really affecting his quality of life. He has constant groin pain. He has trouble getting in and out of a car and he has trouble doing activities he enjoys. He has had injections of his hip. The last injection was back in January. After failed conservative treatment, he has elected to proceed with a right anterior total of arthroplasty. Allergies Allergy/AdvReac Type Severity Reaction Status Date / Time bee venom protein (honey bee) Allergy Mild Significant Verified 07/07/24 15:33 swelling to site chlorhexidine Allergy Mild Rash Verified 07/07/24 15:33 Penicillins Allergy Mild Rash Verified 07/07/24 15:33 aspirin AdvReac Mild Abdominal Verified 07/07/24 15:33 Pain for long period of time Home Medications Medication Instructions Recorded Confirmed Type cyanocobalamin (vitamin B-12) 1,000 mcg PO QPM 12/18/21 07/07/24 History 1,000 mcg capsule nitroglycerin 0.4 mg sublingual 0.4 mg sublingual Q5M PRN chest 12/06/23 07/07/24 Rx tablet pain #30 tabs albuterol sulfate 90 mcg/actuation 2 puff inhalation Q6H PRN 12/17/23 07/07/24 Rx aerosol inhaler (Ventolin HFA) shortness of breath or wheezing #8.5 grams clopidogrel 75 mg tablet (Plavix) 75 mg PO .COMPLEX #45 tabs 03/21/24 07/07/24 Rx Zepbound 15 mg/0.5 mL subcutaneous 15 mg (0.5 mL) subcut Q7D #2 mL 05/22/24 07/07/24 Rx pen injector (tirzepatide (weight loss)) fluticasone propionate 50 1 spray intranasal BID PRN Nasal 05/23/24 07/07/24 History mcg/actuation nasal Congestion spray,suspension (Flonase Allergy Relief) magnesium oxide 400 mg PO QAM 05/23/24 07/07/24 History amlodipine 5 mg tablet 5 mg PO QPM 06/09/24 07/07/24 History atorvastatin 20 mg tablet 20 mg PO QPM 06/09/24 07/07/24 History celecoxib 200 mg capsule (Celebrex) 200 mg PO QAM 06/09/24 07/07/24 History metformin 500 mg 24 hr 500 mg PO QAM 06/09/24 07/07/24 History tablet,extended release (gastric retention) olmesartan 40 1 tab PO QAM 06/09/24 07/07/24 History mg-hydrochlorothiazide 12.5 mg tablet omeprazole 20 mg capsule,delayed 20 mg PO QAM 06/09/24 07/07/24 History release tramadol 50 mg tablet See Rx Instructions PO HS PRN pain 07/07/24 07/07/24 Rx #15 tabs Past Med/Surg History Problem List Sleep apnea (Chronic) CPAP (compliant) Hyperlipidemia (Chronic) Hypertension (Chronic) Prediabetes (Chronic) Taking Metformin GERD (gastroesophageal reflux disease) (Chronic) Hiatal hernia (Chronic) Morbid obesity (Chronic) Coronary artery disease (Chronic) Cardiac cath 11/2023: non-occlusive disease Elevated troponins during [facility] admission felt to be r/t demand ischemia per OR cardiology workload note 12/21/23- D/t ASA intolerance of GI effects, cardio recommends Plavix 75mg QOD Left knee DJD (Chronic) Allergic rhinitis (Chronic) Medical History History of stomach ulcers 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) Surgical History History of esophagogastroduodenoscopy (EGD) History of colonoscopy [place] teeth removed History of adenoidectomy History of myringotomy History of cardiac cath 11/2023- no stents Status post total hip replacement, left Left CARLOS (03/22/2020): Multiple attempts at SAB- unsuccessful d/t bone/anatomy > GA (MAC#4 > Glidescope#3, ETT 7.5, "atraumatic") at [facility] Family History Father Diabetes Cardiac disorder Myocardial infarction Hearing loss Hypertension Heart disease Brother Kidney disease Diabetes Hypertension Other No family history of adverse response to anesthesia No family history of bleeding disorder Social History Smoking Status: Former smoker Tobacco Type: Cigarettes Age Started Using Tobacco: 19; Age Quit Using Tobacco: 29; packs per day: 1.5; Second Hand Exposure: No; Do You Dip or Chew Tobacco: No; Hx Alcohol Use: Yes Alcohol type: beer and hard liquor Alcohol Intake Frequency Comment: 2-3 drinks occasionally on weekends Hx Substance Use: No Preferred Language: Marshallese Communication Ability: Effective Visual Impairment: No Limitations Hearing Ability: Normal 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 Physical Exam On physical exam of the right hip, he is decreased range of motion. He is pain with internal/external rotation. All of his pain is located in the groin.. Constitutional WD/WN, vitals as above Eyes PERRL, conjunctivae normal, anicteric sclerae ENMT external ear and nose normal, oropharynx normal Neck trachea midline, no thyromegaly Respiratory normal respiratory effort Cardiovascular RRR, no murmur, no edema Gastrointestinal (Abdomen) normal bowel sounds, soft, nontender, no hepatosplenomegaly Psychiatric A+Ox3, euthymic affect Results & Data Results & Data Laboratory Results . Diagnostic Findings X-rays of the right hip show advanced osteoarthritis with joint space narrowing, osteophyte formation, and [id number] reticulation. PG Care Time/CCT Total # of Minutes Spent Total Time Spent with Patient: Total time spent is greater than 50% in coordination of care (as documented) at patient's floor/unit and/or counseling patient: Coding Level of Care Code None Diagnoses Osteoarthritis of right hip M16.11
[~2024-07-17 07:29] MED LIST changes: -ACETAMINOPHEN 500 MG TAB PO SCH; +BUPIVACAINE 0.5 % 5 MG/1 ML PF 10ML VIAL ONE; -CEFAZOLIN 3000MG 72.5 ML IV SCH; -FAMOTIDINE 20 MG TAB PO SCH; -GABAPENTIN 900 MG DOSE PO SCH; -LR 500ML BOLUS, THEN 15ML/HR IV SCH; -LR 60ML/HR IV SCH; -TRANEXAMIC ACID 1,000 MG **IV Intra-op IV SCH
[2024-07-17] MEDS: FAMOTIDINE 20 MG TAB PO SCH (08:00)
[2024-07-17] MEDS: GABAPENTIN 900 MG DOSE PO SCH (08:00)
[2024-07-17] MEDS: LR 60ML/HR IV SCH (08:00)
[2024-07-17] MEDS: ACETAMINOPHEN 500 MG TAB PO SCH ×2 (08:01→14:22)
--- NOTE | 2024-07-17 08:09 | History & Physical Bridge Note ---
Date of Service July 17, 2024 History & Physical Bridge Note I have examined the patient, reviewed the History & Physical and in the interval since the performance of the History & Physical I have noted the following changes of clinical significance: no changes noted
[2024-07-17] MEDS ORDERED: PROPOFOL IV EMULSION 10 MG/ML 20 ML VIAL IV ONE ×2 (08:11→10:53)
[2024-07-17] MEDS ORDERED: ONDANSETRON INJ 2 MG/ML 2 ML VIAL ONE (08:11)
[2024-07-17] MEDS ORDERED: LIDOCAINE 2% 2 ML VIAL/AMP(20MG/ML) INFIL ONE (08:11)
[2024-07-17] MEDS ORDERED: MIDAZOLAM HCL 1 MG/ML 2ML VIAL ONE (08:11)
[2024-07-17] MEDS ORDERED: KETAMINE HCL 10MG/ML SYR ONE (08:12)
[2024-07-17] MEDS ORDERED: DexMEDEtomidine HCL IV 100 MCG/ML VIAL IV ONE (08:12)
[2024-07-17] MEDS: dexAMETHasone**PF** 10 MG/ML VIAL IV SCH (08:25)
[2024-07-17] MEDS: LR 15ML/HR IV SCH (08:25)
[2024-07-17] MEDS: TRANEXAMIC ACID 1,000 MG **IV Pre-op IV SCH (08:38)
[2024-07-17] MEDS ORDERED: PHENYLEPHRINE 100MCG/ML 5ML SYR ONE (08:41)
[2024-07-17] MEDS ORDERED: fentaNYL citrate PF 100 MCG/2 ML VIAL ONE ×3 (08:49→10:02)
[2024-07-17] MEDS ORDERED: ROCURONIUM BROMIDE 10 MG/ML 5 ML VIAL IV ONE (08:51)
[2024-07-17] MEDS ORDERED: ePHEDrine sulfate 50 MG/ML AMP IV PRN (08:52)
[2024-07-17] MEDS ORDERED: ONDANSETRON INJ 2 MG/ML 2 ML VIAL IV PRN ×2 (08:52→13:19)
[2024-07-17] MEDS ORDERED: ATROPINE SULFATE 0.1 MG/ML 10ML SYR IV PRN (08:52)
[2024-07-17] MEDS: ceFAZolin 3000MG 3,000 MG/72.5 ML BAG IV SCH (09:03)
[2024-07-17] MEDS: TRANEXAMIC ACID 1,000 MG **IV Intra-op IV SCH (09:03)
[2024-07-17] MEDS ORDERED: GLYCOPYRROLATE 0.2 MG/ML VIAL ONE ×2 (09:49→10:53)
[2024-07-17] MEDS ORDERED: HYDROmorphone INJ 2 MG/ML SYR/VIAL ONE (10:27)
[2024-07-17] MEDS ORDERED: NEOSTIGMINE METHYLSULFATE 1 MG/ML 10ML VIAL ONE (10:53)
[2024-07-17] MEDS: ROPIV 0.5% 246mg, Ketorolac 30mg, EPINEPHrine 0.5mg in NSS INFIL SCH (10:55)
[2024-07-17] MEDS: ORTHO JOINT ANESTHETIC ONE (10:56)
--- NOTE | 2024-07-17 10:57 | Operative Report ---
PG Post Operative Report Pre & Post Diagnosis Operation Date: 07/17/24 09:00 Pre-Op Diagnosis: Right Hip Arthritis Post-Op Diagnosis: Right Hip Arthritis I identified the patient and participated in the time-out.: Yes Procedure Operation Date: 07/17/24 09:00 Actual Procedures p Right Anterior Total Hip Arthroplasty-Cemented(Right) - Feliberto Cazares DO Surgeon Feliberto Cazares DO [facility] Specialist Edgar Pop PA-C Estimated Blood Loss 350 Findings Consistent with Post-Op Diagnosis Specimens Right humeral head Description of Procedure Implants used I used a ZimmerBiomet total hip arthroplasty system with a size 11 standard cemented echo stem, a 50 mm G7 cup with a 25mm screw, an E1 polyethylene liner, a 36 mm ceramic head with a +3 neck. Rdoerick arrived at the hospital for the above procedure. He was seen in the preoperative holding area and the operative extremity was identified and signed. He was given a spinal anesthetic, a preoperative antibiotic, and TXA. He was then taken back to the operating room and laid on the table in the supine position. He was given basic sedation. The operative leg was secured to a Puristst leg positioner. The hip was then prepped and draped in sterile fashion. A timeout was done and the patient and the operative extremity was properly identified. An anterior approach was used. Dissection was taken down through the fascia and the tensor muscle belly was retracted laterally and the rectus was retracted medially. The circumflex vessels were identified and ligated. The capsule was then incised and tagged for later repair. The femoral neck was then cut and the femoral head was removed. The acetabulum was exposed. Time was spent doing a complete circumferential labral release. Sequential reaming of the acetabulum up to a size 49 reamer was done. Final reamings were done under fluoroscopy to ensure appropriate version. A Biomet 50 mm G7 cup was then impacted into place. A single 25 mm screw was placed. The E1 polyethylene liner was then snapped into place. Surrounding soft tissues were then injected with 100 cc of an orthopedic pain control cocktail. The proximal femur was then exposed. I initially try to do an Avenir complete stem. Sequential broaching up to a size 5 broach was done. There was too much instability in the metaphyseal region. I could not get a good press-fit. I decision was made to change to a cemented stem. Sequential broaching up to a size 13 broach was done. Off that broach a size 36 head with a +3 neck was trialed. The hip was reduced and fluoroscopic images showed anatomic alignment of the implants in acceptable length. The broach was removed. The final size 11 echo stem was then cemented into place. A ceramic 36 mm head with a +3 neck was then impacted onto the stem and the hip was reduced. Final fluoroscopic images showed anatomic alignment of the hip. The capsule was then closed with #1 Vicryl suture. A dilute betadyne lavage was then done for 3 minutes. The joint was then irrigated with normal saline solution. The fascia was closed with #1 PDS suture. Skin was closed with 2-0 Vicryl, hari, and a Silverlon dressing. He was then transferred to a hospital bed and taken to the post anesthesia care unit in stable condition. He tolerated the procedure well. Edgar Pop PA-C, was present for the entire procedure. He was critical for patient positioning, prepping, draping, retraction exposure, wound closure and application of sterile dressing. I attest to the content of the Intraoperative Record and any orders documented therein. Any exceptions are noted below.
--- NOTE | 2024-07-17 11:22 | Fluoroscopy Report ---
FL hip RT 1V CLINICAL HISTORY: RT ANTERIOR CARLOS TECHNIQUE: 1 views were obtained with the C-arm in the OR with the above procedure. Total fluoroscopy time was 15.7 seconds. Radiation dose was 6.26 mGy. Comparison: Comparison is made to hip radiographs 05/02/2024 FINDINGS/IMPRESSION: Intraoperative images were obtained of right anterior hip arthroplasty. Please correlate with intraoperative fluoroscopy and operative report. ACT 112: Negative or not required by law. Electronically signed by: Wilmar Marte M.D. 07/17/2024 11:21 AM
[2024-07-17] MEDS: fentaNYL citrate PF 100 MCG/2 ML VIAL IV PRN (11:58)
--- NOTE | 2024-07-17 12:07 | XRay Report ---
XR hip 1V RT w pelvis CLINICAL HISTORY: IN PACU - Post Surgical TECHNIQUE: 1 view of the right hip and single frontal view of the pelvis were obtained. Comparison: Comparison is made to hip radiograph 03/22/2020 FINDINGS: Patient is status post total hip arthroplasty with expected postsurgical changes including soft tissu e swelling and subcutaneous emphysema. Left hip arthroplasty is seen, unchanged . IMPRESSION: Expected postoperative appearance status post placement of total hip arthroplasty. ACT 112: Negative or not required by law. Electronically signed by: Wilmar Marte M.D. 07/17/2024 12:05 PM
[2024-07-17] MEDS ORDERED: NITROGLYCERIN SL 0.4 MG/TAB TAB SL PRN (13:19)
[2024-07-17] MEDS ORDERED: NALOXONE HCL 0.4 MG/1 ML VIAL/CARP IV PRN (13:19)
[2024-07-17] MEDS ORDERED: ALBUTEROL HFA 8 GM INHALER INH PRN (13:19)
[2024-07-17] MEDS ORDERED: FLUTICASONE PROPIONATE NA SPR 16 GM BTL PRN (13:19)
[2024-07-17] MEDS ORDERED: [UNRECOGNIZED DRUG - OTHER] SQ SCH (13:19)
[2024-07-17] MEDS ORDERED: oxyCODONE HCL IR 5 MG TAB (IMMEDIATE RELEASE) PO PRN (13:19)
[2024-07-17] MEDS ORDERED: METOCLOPRAMIDE HCL INJ 5 MG/ML 2 ML VIAL IV PRN (13:19)
[2024-07-17] MEDS ORDERED: HYDROmorphone INJ 0.5 MG/0.5 ML SYR IV PRN (13:19)
[2024-07-17] MEDS ORDERED: traMADol HCL 50 MG TABLET PO PRN (13:19)
[2024-07-17] MEDS ORDERED: bisacodyL 10 MG SUPP PR PRN (13:19)
[2024-07-17] MEDS ORDERED: MAGNESIUM HYDROXIDE SUSP 30 ML UDC PO PRN (13:19)
[2024-07-17] MEDS ORDERED: PHARMACY GLYCEMIC MGMT CONSULT PRN (13:19)
[2024-07-17] MEDS ORDERED: TIRZEPATIDE 15 MG/0.5 ML SQ SCH (13:19)
[2024-07-17] MEDS: INSULIN ASPART PER UNIT CHARGE SC SCH (14:07)
[2024-07-17] MEDS: KETOROLAC TROMETHAMINE 15 MG/ML VIAL IV SCH (14:22)
--- NOTE | 2024-07-17 14:39 | Pharmacy Report ---
Pharmacy Glycemic Short Note 2 - Date of Service July 17, 2024 - Glycemic Short BSG Results (Last 24 hours): 07/17/24 07/17/24 07:48 13:58 POC Glucose 109 H 140 H OUTPATIENT ANTIDIABETIC REGIMEN: * metformin ER 500mg QAM * Zepbound 15mg SC QFR * HbA1c 5.7% (06/19/24) ASSESSMENT: * Roderick is a 53 YOM admitted status post right total hip arthroplasty with a history of of prediabetes. Pharmacy has been consulted to assist with glycemic management while inpatient. * Preoperative BSG within goal range, received dexamethasone 10mg IV preoperatively. BSGs still within goal range at lunchtime. No indication for basal insulin at this time. Will start NovoLog at about a weight based stress of 1.5 to cover steroid induced hyperglycemia. Can likely loosen further tomorrow when steroids wear off. PLAN FOR INPATIENT GLYCEMIC CONTROL: * Hold outpatient oral diabetes medications * Basal insulin * Not indicated at this time * Bolus insulin * NovoLog per scale ACHS or Q6hrs while NPO * Goal Range: Low 110 mg/dL - High 160 mg/dL * Correction Factor: 35 mg/dL/unit * Nutritional / Prandial insulin per carb ratio of 1 unit per 12 grams CHO consumed
[2024-07-17] MEDS: ceFAZolin 1000MG 1,000 MG/7.5 ML SYR IV SCH (16:56)
[2024-07-17] MEDS: ASPIRIN 81 MG ECTAB PO SCH (19:27)
[2024-07-17] MEDS: ATORVASTATIN 20 MG TAB PO SCH (19:28)
[2024-07-17] MEDS: CYANOCOBALAMIN (B-12) 500 MCG TABLET PO SCH (19:28)
[2024-07-17] MEDS: amLODIPine BESYLATE 5 MG TAB PO SCH (19:31)
[2024-07-17] MEDS: SENNA 8.6 MG TAB PO SCH (20:20)
[2024-07-17] MEDS: DOCUSATE SODIUM 100 MG CAP PO SCH (20:20)
--- NOTE | 2024-07-18 06:10 | Orthopedic Progress Note ---
Date of Service July 18, 2024 Assessment & Plan (1) Status post right hip replacement: Overall he is doing very well. He is not having much pain in the right hip. He will be seen by physical therapy today for ambulation and range of motion exercises. He is on aspirin and Plavix for DVT prophylaxis. He can be discharged to home later today. He will follow-up with orthopedics in 2 weeks. Jitendra Vaughn was seen and examined at bedside this morning. Overall is doing very well. He is not having much pain in the right hip. He has been up and ambulating in the hallways. He has no complaints.. Review of Systems All systems reviewed & are unremarkable except as noted in HPI & below. Physical Exam On physical exam of the right hip, the dressing is clean and dry. His leg is out full extension. He has active dorsiflexion plantarflexion of the right ankle.. Results & Data Results & Data Laboratory Results . Diagnostic Findings Postoperative x-rays of the right hip show the prosthesis to be in anatomic alignment without any evidence of fracture complication, or loosening.. PG Care Time/CCT Total # of Minutes Spent Total Time Spent with Patient: Total time spent is greater than 50% in coordination of care (as documented) at patient's floor/unit and/or counseling patient: Coding Level of Care Code 19255 Post Operative Follow-Up Diagnoses Status post right hip replacement Z96.641
--- NOTE | 2024-07-18 06:11 | Discharge Summary ---
Date of Service July 18, 2024 Admission HPI (Per Admitting) Roderick is a pleasant 53-year-old male who has been dealing with chronic increasing right hip and groin pain. He has a history of a left hip replacement done by Dr. Jenkins in the past. He has done fairly well with that. Unfortunately, he is dealing with a lot of right hip pain. It is really affecting his quality of life. He has constant groin pain. He has trouble getting in and out of a car and he has trouble doing activities he enjoys. He h as had injections of his hip. The last injection was back in January. After failed conservative treatment, he has elected to proceed with a right anterior total of arthroplasty. Admission Exam (Per Admitting) On physical exam of the right hip, he is decreased range of motion. He is pain with internal/external rotation. All of his pain is located in the groin.. Principal Diagnosis Same as "Discharge Diagnosis" noted below under Discharge Instructions. Discharge Exam On physical exam of the right hip, the dressing is clean and dry. His leg is out full extension. He has active dorsiflexion plantarflexion of the right ankle.. Discharge Data Procedures Performed Operation Date: 07/17/24 09:00 Actual Procedures p Right Anterior Total Hip Arthroplasty-Cemented(Right) - Feliberto Cazares DO Ordered Studies 07/17/24 09:00 FL hip RT 1V Routine Hospital Course (1) Status post right hip replacement: On July 17, 2024 Roderick arrived at [facility] and underwent a right hip replacement without complication. He had a general anesthetic. Postoperatively, he was started on aspirin and Plavix for DVT prophylaxis and transferred to the general orthopedic floors. His hospital course was uneven tful. On postop day #1, his vital signs were stable and his pain was well- controlled. He was able to participate well with physical therapy doing ambulation and range of motion exercises. He was then discharged to home. He will follow-up with orthopedics in 2 weeks. PG Care Time/CCT Total # of Minutes Spent Total Time Spent with Patient: Total time spent is greater than 50% in coordination of care (as documented) at patient's floor/unit and/or counseling patient: Discharge Plan Discharge Items Patient Disposition: Home - Self-Care Reason For Visit: Right Hip Arthritis Discharge Diagnosis: Right hip replacement Activity: Per Instructions section Non-emergency contact: Surgeon Call non-emergency contact if: your wound has increased redness and your wound has increased drainage Follow-up/Referrals: Madhuri Morales MD [Primary Care Provider] - Diet: Regular Addtl Attending Provider Instructions: Activity and Therapy Recommendations: * If you are using [facility] then therapy will be provided at your home until they feel you have accomplished all of your goals. * If you are using [facility] then Physical Therapy will be provided until they feel you are ready to start Outpatient Physical Therapy. * If you are not using home therapy then Outpatient Physical Therapy should start about 3-5 days from your day of surgery. Therapy will last about 6-10 weeks * You were shown a series of exercises in the hospital. Do these exercises three times each day including the exercises you were shown in physical therapy. * Get up and walk several times each day.~ For the first four weeks, try not to stand or walk for more than one hour at a time. If you do stand or walk for more than one hour, you will not hurt anything, but your leg will likely swell.~~ * As you feel comfortable, you may change from the walker or crutches to a cane and~then to independent walking. Medications: * Narcotic You will likely be sent home from the hospital with a prescription for the narcotic pain medication that worked best throughout your stay. * Cefadroxil -take the antibiotic twice a day for 10 days to help prevent infection. * Aspirin Most patients will be required to take Aspirin 81mg twice a day for 6 weeks after surgery. This is obtained [id number] and a prescription is not necessary. * Other medications may be prescribed for specific circumstances. If you have any questions, please call the office at . * Resume previous home medications unless otherwise instructed TEDs/Elastic Stockings: The white elastic stockings help limit swelling and prevent blood clots from forming in your legs. The more you wear them, the more they work. Wear them for six weeks. Dressing Care: Leave the Silverlon dressing in place for 7 days. After 7 days you may remove the dressing. If the incision is not draining then you may leave the hari open to air. If there is a little bit of drainage or if the hari are getting stuck on your clothing then cover the incision with a dry dressing. The hari will be removed at your 2 week follow-up appointment. Showering: You may shower with the Silverlon dressing in place. Do not let the shower spray hit the dressing directly. Pat the Silverlon dressing dry. If the dressing becomes wet underneath, then simply remove the dressing. Keep the incision dry until you are 7 days out from the day of surgery. After 7 days you may remove the Silverlon dressing and shower with the hari exposed. Let soapy water run over the hari and pat them dry. Do not scrub or soak the incision. Diet: You may resume your previous diet. Things To Watch For: * Drainage from the incision site that occurs more than one week after your surgery. * Increased redness at the incision site. * Fever above 102 degrees Fahrenheit. * Unusual chest pain or shortness of breath. * Call [facility] at with any of the above problems Follow-Up Visit: Follow-up with Dr. Cazares's office 2-3 weeks after your day of surgery. We will remove your hari and answer any questions. If you have any additional questions or concerns, Dr Cazares is usually in the office at the same time and will be available An appointment was probably scheduled when you signed-up for surgery in the office. If you have any questions call Office Instructions: More detailed instructions as well as Frequently Asked Questions were provided in a folder by our office when you signed-up for surgery. Please review these instructions when you get home. If you have any further questions or concerns, please feel free to call the office at [phone] Pending Studies at Discharge: No Stand-Alone Forms: My [facility], Smoking Cessation Medications and DC Order Prescriptions: New cefadroxil 500 mg capsule 500 mg PO BID 10 Days Qty: 20 0RF oxycodone 5 mg tablet 5 mg PO Q6H PRN (Reason: pain) Qty: 30 0RF aspirin 81 mg Tablet,Delayed Release (Dr/Ec) 81 mg PO BID 42 Days Qty: 84 0RF Continued clopidogrel [Plavix] 75 mg tablet 75 mg PO .COMPLEX Qty: 45 3RF Rx Instructions: 75 mg orally every other day; Zepbound 15 mg/0.5 mL pen injector 15 mg subcut Q7D Qty: 2 3RF Patient Comments: takes on Fridays magnesium oxide 400 mg magnesium capsule 400 mg PO QAM albuterol sulfate [Ventolin HFA] 90 mcg/actuation HFA aerosol inhaler 2 puff inhalation Q6H PRN (Reason: shortness of breath or wheezing) Qty: 8.5 1RF fluticasone propionate [Flonase Allergy Relief] 50 mcg/actuation spray,suspension 1 spray intranasal BID PRN (Reason: Nasal Congestion) Rx Instructions: administer into each nostril tramadol 50 mg tablet See Rx Instructions PO HS PRN (Reason: pain) Qty: 15 0RF Rx Instructions: 1 or 2 tabs orally at bedtime PRN; cyanocobalamin (vitamin B-12) 1,000 mcg capsule 1,000 mcg PO QPM celecoxib [Celebrex] 200 mg capsule 200 mg PO QAM atorvastatin 20 mg tablet 20 mg PO QPM amlodipine 5 mg tablet 5 mg PO QPM omeprazole 20 mg capsule,delayed release(DR/EC) 20 mg PO QAM olmesartan-hydrochlorothiazide 40-12.5 mg tablet 1 tab PO QAM metformin 500 mg tablet,ER nona.retention 24 hr 500 mg PO QAM nitroglycerin 0.4 mg tablet, sublingual 0.4 mg sublingual Q5M PRN (Reason: chest pain) Qty: 30 0RF Rx Instructions: no more than 3 doses - then seek care in ER Discharge Orders: Discharge Order (Routine); Ordered 07/18/24 Ordered By: Feliberto Cazares Admission Data Admit Date/Time: 07/17/24 11:26 Attending Provider: Feliberto Cazares Admit Provider: Feliberto Cazares Primary Care Provider: Madhuri Morales
[2024-07-18 06:57] VITALS: BP 134/82; PULSE 91; RESP 16; TEMP 98.1; O2SAT 97
[2024-07-18] MEDS: CLOPIDOGREL BISULFATE 75 MG TAB PO SCH (08:32)
[2024-07-18] MEDS: hydroCHLOROthiazide 25 MG TAB PO SCH (08:32)
[2024-07-18] MEDS: MAGNESIUM OXIDE 400 MG TAB PO SCH (08:33)
[2024-07-18] MEDS: MULTIVITAMIN TAB PO SCH (08:33)
[2024-07-18] MEDS: PANTOprazole 40 MG TAB PO SCH (08:34)
[2024-07-18] MEDS: LOSARTAN POTASSIUM 50 MG TAB PO SCH (08:34)
[2024-07-18] MEDS ORDERED: METFORMIN 500 MG PO SCH (09:00)
--- NOTE | 2024-07-20 10:19 | Anesthesiology Progress Note ---
Date of Service July 17, 2024 Anesthesia Post Procedure Pain Intensity Left Hip: Pain Intensity: 2 Transfer of Care Handoff Completed per policy Notes Mental Status: alert / awake / arousable and participated in evaluation Patient Amnestic to Procedure: Yes Nausea / Vomiting: adequately controlled Pain: adequately controlled Airway Patency, RR, SpO2: stable & adequate BP & HR: stable & adequate Hydration State: stable & adequate Anesthetic Complications: no major complications apparent and Pt Satisfied with anesthetic care
== END 2024-07-18 11:15 | disposition home health service (06) ==
LOC: 3E 07:29 → ASU 07:29